=== PATIENT | male | born 1960 | race Caucasian/White ===

== ENCOUNTER 2018-05-19 22:43 | Inpatient (IN) | payer OTHER ==
[~2018-05-19] VITALS: Ht 185.4 cm; Wt 102.1 kg
[2018-05-19] MEDS ORDERED: IV NORMAL SALINE 1000ML BAG 1,000 ML IV SCH (23:15)
--- NOTE | 2018-05-19 23:15 | PHYS DOC ---
Past Medical History Past Medical History: CAD Additional Past Medical Histor: PT is deaf Past Surgical History: Other Additional Past Surgical Histo: stent Alcohol Use: None Drug Use: None Adult General Chief Complaint Chief Complaint: BLOOD IN URINE HPI HPI Patient is a 57-year-old male who presents with complaint of left-sided flank pain and hematuria that started yesterday. Patient states symptoms are similar to previous episodes of kidney stones. Patient states he has had numerous episodes with kidney stones and has had to have lithotripsy. Currently he denies any pain. He states the pain waxes and wanes. He first started noticing blood in the urine earlier today. Review of Systems Review of Systems Constitutional: Denies fever or chills [] Respiratory: Denies cough or shortness of breath [] Cardiovascular: No additional information not addressed in HPI [] GI: Denies abdominal pain, nausea, vomiting or diarrhea [] : Positive flank pain and hematuria [] All other systems were reviewed and found to be within normal limits, except as documented in this note. Current Medications Current Medications Current Medications Medications (Trade) Dose Ordered Sig/Liliana Start Time Stop Time Status Last Admin Dose Admin Sodium Chloride 1,000 ml @ 1,000 mls/hr Q1H 05/19/18 23:15 05/20/18 00:14 05/19/18 23:22 1,000 MLS/HR Allergies Allergies Allergies Coded Allergies Type Severity Reaction Last Updated Verified No Known Drug Allergies 07/14/13 No Physical Exam Physical Exam Constitutional: Well developed, well nourished, no acute distress, non-toxic appearance. [] HENT: Normocephalic, atraumatic, bilateral external ears normal, oropharynx moist, no oral exudates, nose normal. [] Eyes: PERRLA, EOMI, conjunctiva normal, no discharge. [] Neck: Normal range of motion, no tenderness, supple, no stridor. [] Cardiovascular: Regular rate and rhythm[] Lungs & Thorax: Bilateral breath sounds clear to auscultation [] Abdomen: Bowel sounds normal, soft, no tenderness. [] Skin: Warm, dry, no erythema, no rash. [] Extremities: No tenderness, no cyanosis, no clubbing, ROM intact, no edema. [] Neurologic: Awake and alert, no focal deficits noted. [] Current Patient Data Vital Signs Vital Signs Date Time Temp Pulse Resp B/P (MAP) Pulse Ox O2 Delivery O2 Flow Rate FiO2 05/19/18 22:52 98.0 79 18 162/88 (112) 97 Room Air 98.0 Lab Values Laboratory Tests Test 05/19/18 22:55 05/19/18 23:30 Urine Collection Type Void Urine Color Yellow Urine Clarity Clear Urine pH 7.0 Urine Specific [place] 1.010 Urine Protein Negative mg/dL (NEG-TRACE) Urine Glucose (UA) Negative mg/dL (NEG) Urine Ketones (Stick) Negative mg/dL (NEG) Urine Blood Large (NEG) Urine Nitrite Negative (NEG) Urine Bilirubin Negative (NEG) Urine Urobilinogen Dipstick 0.2 mg/dL (0.2 mg/dL) Urine Leukocyte Esterase Trace (NEG) Urine RBC Tntc /HPF (0-2) Urine WBC Rare /HPF (0-4) Urine Bacteria 0 /HPF (0-FEW) White Blood Count 8.9 x10^3/uL (4.0-11.0) Red Blood Count 5.41 x10^6/uL (4.30-5.70) Hemoglobin 16.4 g/dL (13.0-17.5) Hematocrit 48.2 % (39.0-53.0) Mean Corpuscular Volume 89 fL (79-100) Mean Corpuscular Hemoglobin 30 pg (25-35) Mean Corpuscular Hemoglobin Concent 34 g/dL (31-37) Red Cell Distribution Width 13.8 % (11.5-14.5) Platelet Count 223 x10^3/uL (140-400) Neutrophils (%) (Auto) 46 % (31-73) Lymphocytes (%) (Auto) 43 % (24-48) Monocytes (%) (Auto) 7 % (0-9) Eosinophils (%) (Auto) 3 % (0-3) Basophils (%) (Auto) 1 % (0-3) Neutrophils # (Auto) 4.1 x10^3uL (1.8-7.7) Lymphocytes # (Auto) 3.8 x10^3/uL (1.0-4.8) Monocytes # (Auto) 0.7 x10^3/uL (0.0-1.1) Eosinophils # (Auto) 0.3 x10^3/uL (0.0-0.7) Basophils # (Auto) 0.1 x10^3/uL (0.0-0.2) Sodium Level 141 mmol/L (136-145) Potassium Level 4.1 mmol/L (3.5-5.1) Chloride Level 103 mmol/L (98-107) Carbon Dioxide Level 29 mmol/L (21-32) Anion Gap 9 (6-14) Blood Urea Nitrogen 13 mg/dL (8-26) Creatinine 0.9 mg/dL (0.7-1.3) Estimated GFR (Cockcroft-Gault) 86.4 BUN/Creatinine Ratio 14 (6-20) Glucose Level 111 mg/dL (70-99) H Calcium Level 9.0 mg/dL (8.5-10.1) Total Bilirubin 0.5 mg/dL (0.2-1.0) Aspartate Amino Transferase (AST) 29 U/L (15-37) Alanine Aminotransferase (ALT) 48 U/L (16-63) Alkaline Phosphatase 81 U/L (46-116) Total Protein 7.8 g/dL (6.4-8.2) Albumin 4.0 g/dL (3.4-5.0) Albumin/Globulin Ratio 1.1 (1.0-1.7) Laboratory Tests 05/19/18 23:30 Laboratory Tests 05/19/18 23:30 EKG EKG [] Radiology/Procedures Radiology/Procedures [] Impressions: PROCEDURE: CT ABDOMEN PELVIS WO CONTRAST PQRS Compliance statement: One or more of the following individualized dose reduction techniques were utilized for this examination: 1. Automated exposure control. 2. Adjustment of the mA and/or kV according to patient size. 3. Use of iterative reconstruction technique. Indication:left flank pain TECHNIQUE: CT abdomen and pelvis without IV contrast with multiplanar reformats. COMPARISON: None FINDINGS: Limited evaluation of solid abdominal and pelvic organs due to lack of IV contrast. Heart is normal in size. No pericardial or pleural effusion. Clear lung bases. Noncontrast appearance of the liver, spleen, gallbladder, pancreas, adrenals within normal limits. 1.0 cm nonobstructing stone is seen in the inferior pole collecting system of the right kidney. 2 stones are seen in the proximal left ureter, the largest measuring 1.1 cm causing moderate left hydronephrosis. Additional 2-3 mm stones are seen in the left kidney. No enlarged retroperitoneal or pelvic adenopathy. No free pelvic fluid or ascites. No bowel obstruction. The prostate and seminal vesicles show no large mass. Urinary bladder demonstrates no radiopaque stones. No suspicious bony lesion. IMPRESSION: Limited evaluation of solid abdominal and pelvic organs due to lack of IV contrast. Bilateral nephrolithiasis with obstructing proximal left ureteral stone. Electronically signed by: Kiran Harrison DO (05/19/2018 11:30 PM) [facility] DICTATED and SIGNED BY: KIRAN HARRISON DO Course & Med Decision Making Course & Med Decision Making Pertinent Labs and Imaging studies reviewed. (See chart for details) [] Dragon Disclaimer Dragon Disclaimer This electronic medical record was generated, in whole or in part, using a voice recognition dictation system. Departure Departure Impression: Primary Impression: Ureterolithiasis Disposition: ADMITTED INPATIENT Admitting Physician: Shubham Garcia Condition: IMPROVED Referrals: AYAN SHELLEY (PCP) KEYSHAWN RUCKER Jr., DO May 19, 2018 23:15
[2018-05-19 23:16] LABS: BILIRUBIN,URINE NEGATIVE (NEG); CLARITY,URINE CLEAR; COLOR,URINE YELLOW; NITRITE,URINE NEGATIVE (NEG); PROTEIN,URINE NEGATIVE (NEG-TRACE); UROBILINOGEN,URINE 0.2 mg/dL (0.2 mg/dL)
[2018-05-19 23:22] LABS: BACTERIA,URINE 0 /HPF (0-FEW); RBC,URINE TNTC /HPF (0-2); WBC,URINE RARE /HPF (0-4)
--- NOTE | 2018-05-19 23:33 | RAD ---
PQRS Compliance statement: One or more of the following individualized dose reduction techniques were utilized for this examination: 1. Automated exposure control. 2. Adjustment of the mA and/or kV according to patient size. 3. Use of iterative reconstruction technique. Indication:left flank pain TECHNIQUE: CT abdomen and pelvis without IV contrast with multiplanar reformats. COMPARISON: None FINDINGS: Limited evaluation of solid abdominal and pelvic organs due to lack of IV contrast. Heart is normal in size. No pericardial or pleural effusion. Clear lung bases. Noncontrast appearance of the liver, spleen, gallbladder, pancreas, adrenals within normal limits. 1.0 cm nonobstructing stone is seen in the inferior pole collecting system of the right kidney. 2 stones are seen in the proximal left ureter, the largest measuring 1.1 cm causing moderate left hydronephrosis. Additional 2-3 mm stones are seen in the left kidney. No enlarged retroperitoneal or pelvic adenopathy. No free pelvic fluid or ascites. No bowel obstruction. The prostate and seminal vesicles show no large mass. Urinary bladder demonstrates no radiopaque stones. No suspicious bony lesion. IMPRESSION: Limited evaluation of solid abdominal and pelvic organs due to lack of IV contrast. Bilateral nephrolithiasis with obstructing proximal left ureteral stone. Electronically signed by: Kiran Harrison DO (05/19/2018 11:30 PM) [facility]
[2018-05-19 23:41] LABS: BASO # 0.1 x10^3/uL (0.0-0.2); BASO % 1 % (0-3); EOS # 0.3 x10^3/uL (0.0-0.7); EOS % 3 % (0-3); HEMATOCRIT 48.2 % (39.0-53.0); HEMOGLOBIN 16.4 g/dL (13.0-17.5); LYMPH # 3.8 x10^3/uL (1.0-4.8); LYMPH % 43 % (24-48); MEAN CORPUSCULAR HEMOGLOBIN 30 pg (25-35); MEAN CORPUSCULAR HGB CONC 34 g/dL (31-37); MEAN CORPUSCULAR VOLUME 89 fL (79-100); MONO # 0.7 x10^3/uL (0.0-1.1); MONO % 7 % (0-9); NEUT # 4.1 x10^3uL (1.8-7.7); NEUT % 46 % (31-73); PLATELET COUNT 223 x10^3/uL (140-400); RED BLOOD COUNT 5.41 x10^6/uL (4.30-5.70); RED CELL DISTRIBUTION WIDTH 13.8 % (11.5-14.5); WHITE BLOOD COUNT 8.9 x10^3/uL (4.0-11.0)
[2018-05-19 23:48] LABS: CREATININE 0.9 mg/dL (0.7-1.3); GFR 86.4; POTASSIUM 4.1 mmol/L (3.5-5.1)
[2018-05-19 23:54] LABS: ALBUMIN/GLOBULIN RATIO 1.1 (1.0-1.7); TOTAL BILIRUBIN 0.5 mg/dL (0.2-1.0); TOTAL PROTEIN 7.8 g/dL (6.4-8.2)
[2018-05-20] MEDS: IV NORMAL SALINE 1000ML BAG 1,000 ML IV SCH ×2 (00:17→09:08)
[2018-05-20] MEDS ORDERED: HYDROmorphone 2 MG/ML VIAL IV PRN (00:30)
[2018-05-20] MEDS ORDERED: ONDANSETRON PF 4 MG/2 ML VIAL. IV PRN ×2 (00:30→08:45)
[2018-05-20 00:58] VITALS: BP 149/85
--- NOTE | 2018-05-20 01:00 | NUR ---
Received report from Gudelia LYNN in the emergency department. Patient arrived to unit at 1258 via wheelchair accompanied by his and a automotive parts interpreter. Patient is hearing impaired and communicates thru sign language. Patient complains of blood and urine. Patient currently rates his pain at a 0 of 10. Patient admission complete. Patient very cooperative and pleasant throughout admission. Will need an automotive parts interpreter when Doctor's round in the AM. Patients is hearing impaired as well but can some what read lips. Patient orientated to his room, his bed was placed in the lowest position and locked, and his call light was placed within reach. A clipboard with paper was placed in patients room for communication purposes and not placed promotions officer light phone indicating the need for staff to go to patients room to determine what is needed. Will continue to monitor the patient.
[2018-05-20] MEDS ORDERED: METO25TA4 PO (01:51)
[2018-05-20] MEDS ORDERED: OMEG1CAP38 PO (01:51)
[2018-05-20] MEDS ORDERED: POTA10TA17 PO (01:51)
[2018-05-20] MEDS ORDERED: ASPI-630 PO (01:51)
[2018-05-20] MEDS ORDERED: HYDR12.575 PO (01:51)
[2018-05-20] MEDS ORDERED: PRAV40TA2 PO (01:51)
[2018-05-20] MEDS ORDERED: UBID100C26 PO (01:51)
[2018-05-20 03:26] VITALS: BP 127/80
[2018-05-20 07:00] VITALS: BP 139/79
--- NOTE | 2018-05-20 07:45 | NUR ---
finance mgr services have been requested. Motion Picture Operator scheduled to arrive around 0900 and stay for two hours.
[2018-05-20] MEDS ORDERED: HYDROcodone/APAP 5/325MG 1 TAB TABLET PO PRN (08:45)
[2018-05-20] MEDS ORDERED: POTASSIUM CITRATE 10 MEQ TABLET.ER PO SCH (09:00)
[2018-05-20] MEDS ORDERED: hydroCHLOROthiazide 12.5 MG CAPSULE PO SCH (09:00)
--- NOTE | 2018-05-20 09:27 | PDOC2 ---
UROLOGY CONSULT Date of Consult Date of Consult DATE: 05/20/18 TIME: 09:25 Source Source: Caregiver, Chart review, Patient History of Present Illness Reason for Visit: Patient is a 57-year-old male who presents with complaint of left-sided flank pain and hematuria that started day before yesterday. He states symptoms are similar to previous episodes of kidney stone, which he has had four other times. Patient states he has had numerous episodes with kidney stones and has had to have lithotripsy with Dr. Hunter right before he retired. He was taking hydralazine and Potassium Citrate for stone prevention, but stopped taking that because he ran out. He has not seen a Urologist for the past two years. Pain brought him in last night, but he is currently not having any pain at all. He had some blood in his urine, but is not having any dysuria at all. He would like to eat if possible. Past Medical History Renal/: Other (Kidney stones ) Current Problem List Problems: (1) Ureterolithiasis Current Medications Current Medications Current Medications Acetaminophen/ Hydrocodone Bitart (Lortab 5/325) 1 tab PRN Q4HRS PRN PO PAIN; Start 05/20/18 at 08:45 Atorvastatin Calcium (Lipitor) 10 mg QHS PO ; Start 05/20/18 at 21:00 Fish Oil (Fish Oil) 1,000 mg HS PO ; Start 05/20/18 at 21:00 Hydrochlorothiazide (Microzide) 12.5 mg DAILY PO ; Start 05/20/18 at 09:00 Hydromorphone HCl (Dilaudid) 1 mg PRN Q2HR PRN IV Pain; Start 05/20/18 at 00:30 Ketorolac Tromethamine (Toradol 15mg Vial) 15 mg 1X ONCE IV ; Start 05/20/18 at 09:30; Stop 05/20/18 at 09:31 Ketorolac Tromethamine (Toradol 15mg Vial) 15 mg PRN Q6HRS PRN IV PAIN; Start 05/20/18 at 09:30; Stop 05/25/18 at 09:29 Metoprolol Tartrate (Lopressor) 25 mg HS PO ; Start 05/20/18 at 21:00 Non-Formulary Medication (Ubidecarenone (Coq-10)) 100 mg HS PO ; Start 05/20/18 at 21:00; Status UNV Ondansetron HCl (Zofran) 4 mg PRN Q6HRS PRN IV NAUSEA/VOMITING; Start 05/20/18 at 08:45 Ondansetron HCl (Zofran) 4 mg PRN Q8HRS PRN IV NAUSEA/VOMITING; Start 05/20/18 at 00:30; Stop 05/20/18 at 08:39; Status DC Potassium Citrate (Urocit-K) 10 meq BID PO ; Start 05/20/18 at 09:00 Sodium Chloride 1,000 ml @ 125 mls/hr Q8H IV Last administered on 05/20/18at 09 :08; Start 05/20/18 at 00:17; Stop 05/21/18 at 00:16 Sodium Chloride 1,000 ml @ 1,000 mls/hr Q1H IV Last administered on 05/19/18at 23:22; Start 05/19/18 at 23:15; Stop 05/20/18 at 00:14; Status DC Tamsulosin HCl (Flomax) 0.4 mg QHS PO ; Start 05/20/18 at 21:00 Allergies Allergies: Coded Allergies: No Known Drug Allergies (Unverified , 07/14/13) ROS Review Of Systems: CONSTITUTIONAL: No fever or chills EYES: No recent changes SKIN: No rash or itching CARDIOVASCULAR: No chest pain, syncope, palpitations, or edema RESPIRATORY: No SOB or cough GASTROINTESTINAL: No nausea, vomiting or abdominal pain NEUROLOGICAL: No headaches or weakness ENDOCRINE: No cold or heat intolerance GENITOURINARY: + hematuria, kidney stones MUSCULOSKELETAL: No back pain or joint pain LYMPHATICS: No enlarged lymph nodes PSYCHIATRIC: No anxiety or depression Physical Exam Physical Exam: General: Pleasant, no acute distress, well groomed Eyes: conjunctiva anicteric, eyes full range of motion ENT: moist oral mucosa, normal dentition Neck: Trachea midline, no masses Respiratory: unlabored breathing, not using accessory muscles Abdomen: nontender, nondistended, no hepatosplenomegaly, no masses Skin: no rashes or skin lesions on visualized skin Psych: normal mood, affect. Alert and oriented x 3. Vitals VITALS Vital Signs Date Time Temp Pulse Resp B/P (MAP) Pulse Ox O2 Delivery O2 Flow Rate FiO2 05/20/18 07:45 Room Air 05/20/18 07:00 98.0 73 18 139/79 (99) 97 98.0 Labs Labs Laboratory Tests Test 05/19/18 22:55 05/19/18 23:30 Urine Collection Type Void Urine Color Yellow Urine Clarity Clear Urine pH 7.0 Urine Specific [place] 1.010 Urine Protein Negative mg/dL (NEG-TRACE) Urine Glucose (UA) Negative mg/dL (NEG) Urine Ketones (Stick) Negative mg/dL (NEG) Urine Blood Large (NEG) Urine Nitrite Negative (NEG) Urine Bilirubin Negative (NEG) Urine Urobilinogen Dipstick 0.2 mg/dL (0.2 mg/dL) Urine Leukocyte Esterase Trace (NEG) Urine RBC Tntc /HPF (0-2) Urine WBC Rare /HPF (0-4) Urine Bacteria 0 /HPF (0-FEW) White Blood Count 8.9 x10^3/uL (4.0-11.0) Red Blood Count 5.41 x10^6/uL (4.30-5.70) Hemoglobin 16.4 g/dL (13.0-17.5) Hematocrit 48.2 % (39.0-53.0) Mean Corpuscular Volume 89 fL (79-100) Mean Corpuscular Hemoglobin 30 pg (25-35) Mean Corpuscular Hemoglobin Concent 34 g/dL (31-37) Red Cell Distribution Width 13.8 % (11.5-14.5) Platelet Count 223 x10^3/uL (140-400) Neutrophils (%) (Auto) 46 % (31-73) Lymphocytes (%) (Auto) 43 % (24-48) Monocytes (%) (Auto) 7 % (0-9) Eosinophils (%) (Auto) 3 % (0-3) Basophils (%) (Auto) 1 % (0-3) Neutrophils # (Auto) 4.1 x10^3uL (1.8-7.7) Lymphocytes # (Auto) 3.8 x10^3/uL (1.0-4.8) Monocytes # (Auto) 0.7 x10^3/uL (0.0-1.1) Eosinophils # (Auto) 0.3 x10^3/uL (0.0-0.7) Basophils # (Auto) 0.1 x10^3/uL (0.0-0.2) Sodium Level 141 mmol/L (136-145) Potassium Level 4.1 mmol/L (3.5-5.1) Chloride Level 103 mmol/L (98-107) Carbon Dioxide Level 29 mmol/L (21-32) Anion Gap 9 (6-14) Blood Urea Nitrogen 13 mg/dL (8-26) Creatinine 0.9 mg/dL (0.7-1.3) Estimated GFR (Cockcroft-Gault) 86.4 BUN/Creatinine Ratio 14 (6-20) Glucose Level 111 mg/dL (70-99) Calcium Level 9.0 mg/dL (8.5-10.1) Total Bilirubin 0.5 mg/dL (0.2-1.0) Aspartate Amino Transf (AST/SGOT) 29 U/L (15-37) Alanine Aminotransferase (ALT/SGPT) 48 U/L (16-63) Alkaline Phosphatase 81 U/L (46-116) Total Protein 7.8 g/dL (6.4-8.2) Albumin 4.0 g/dL (3.4-5.0) Albumin/Globulin Ratio 1.1 (1.0-1.7) Laboratory Tests Test 05/19/18 22:55 05/19/18 23:30 Urine Collection Type Void Urine Color Yellow Urine Clarity Clear Urine pH 7.0 Urine Specific [place] 1.010 Urine Protein Negative mg/dL (NEG-TRACE) Urine Glucose (UA) Negative mg/dL (NEG) Urine Ketones (Stick) Negative mg/dL (NEG) Urine Blood Large (NEG) Urine Nitrite Negative (NEG) Urine Bilirubin Negative (NEG) Urine Urobilinogen Dipstick 0.2 mg/dL (0.2 mg/dL) Urine Leukocyte Esterase Trace (NEG) Urine RBC Tntc /HPF (0-2) Urine WBC Rare /HPF (0-4) Urine Bacteria 0 /HPF (0-FEW) White Blood Count 8.9 x10^3/uL (4.0-11.0) Red Blood Count 5.41 x10^6/uL (4.30-5.70) Hemoglobin 16.4 g/dL (13.0-17.5) Hematocrit 48.2 % (39.0-53.0) Mean Corpuscular Volume 89 fL (79-100) Mean Corpuscular Hemoglobin 30 pg (25-35) Mean Corpuscular Hemoglobin Concent 34 g/dL (31-37) Red Cell Distribution Width 13.8 % (11.5-14.5) Platelet Count 223 x10^3/uL (140-400) Neutrophils (%) (Auto) 46 % (31-73) Lymphocytes (%) (Auto) 43 % (24-48) Monocytes (%) (Auto) 7 % (0-9) Eosinophils (%) (Auto) 3 % (0-3) Basophils (%) (Auto) 1 % (0-3) Neutrophils # (Auto) 4.1 x10^3uL (1.8-7.7) Lymphocytes # (Auto) 3.8 x10^3/uL (1.0-4.8) Monocytes # (Auto) 0.7 x10^3/uL (0.0-1.1) Eosinophils # (Auto) 0.3 x10^3/uL (0.0-0.7) Basophils # (Auto) 0.1 x10^3/uL (0.0-0.2) Sodium Level 141 mmol/L (136-145) Potassium Level 4.1 mmol/L (3.5-5.1) Chloride Level 103 mmol/L (98-107) Carbon Dioxide Level 29 mmol/L (21-32) Anion Gap 9 (6-14) Blood Urea Nitrogen 13 mg/dL (8-26) Creatinine 0.9 mg/dL (0.7-1.3) Estimated GFR (Cockcroft-Gault) 86.4 BUN/Creatinine Ratio 14 (6-20) Glucose Level 111 mg/dL (70-99) Calcium Level 9.0 mg/dL (8.5-10.1) Total Bilirubin 0.5 mg/dL (0.2-1.0) Aspartate Amino Transf (AST/SGOT) 29 U/L (15-37) Alanine Aminotransferase (ALT/SGPT) 48 U/L (16-63) Alkaline Phosphatase 81 U/L (46-116) Total Protein 7.8 g/dL (6.4-8.2) Albumin 4.0 g/dL (3.4-5.0) Albumin/Globulin Ratio 1.1 (1.0-1.7) Images Images IMPRESSION: Limited evaluation of solid abdominal and pelvic organs due to lack of IV contrast. Bilateral nephrolithiasis with obstructing proximal left ureteral stone. Assessment/Plan Assessment/Plan Patient doing well today despite bilateral stones. Will require lithotripsy as an outpatient. He will follow up with Dr. Albarado on 05/26/18 at 120 pm. Appointment card and new patient paperwork given to patient. RX for KUB on 05/25/18 given to patient. Please get done day before appointment as a walk in at radiology patient may eat and go home on pain medication. Ok to discharge from a Urology perspective whenever medical team is ready Discussed above with RN and with patient and spouse through an knowledge manager for the hearing impaired. MAL HERRERA APRN May 20, 2018 09:27
[2018-05-20] MEDS ORDERED: KETOROLAC 15 MG/ML VIAL. IV ONE (09:30)
[2018-05-20] MEDS ORDERED: KETOROLAC 15 MG/ML VIAL. IV PRN (09:30)
--- NOTE | 2018-05-20 10:19 | PDOC1 ---
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 History obtained via signal processing engineer at bedside Known history of kidney stones - this will be his fourth episode, left and right stones, previous patient of Dr. Hunter. Twice or 3 times he needed urologic procedure and ESWL to get rid of the stones. Was maintained on unrecalled medication that "dissolve stones" and he has been for good for the past many years maybe 5 or 10 yrs until today. No significant pain, maybe a 1-1/2 hour duration only of left flank pain. But gross hematuria was marked. Hemodynamically stable with normal VS and hemoglobin and no pain. CT scan shows obstruction proximal area left and small tiny stones both left and right. I have provided copy of result. Patient has been nothing by mouth and urology consulted and aware. He Has no pertinent medical history Past Medical History Cardiovascular: No pertinent hx Pulmonary: No pertinent hx GI: No pertinent hx Heme/Onc: No pertinent hx Hepatobiliary: No pertinent hx Psych: No pertinent hx Rheumatologic: No pertinent hx Infectious disease: No pertinent hx ENT: No pertinent hx Renal/: No pertinent hx, Other (Kidney stones ) Endocrine: No pertinent hx Dermatology: No pertinent hx Past Surgical History Past Surgical History: Other (eswl) Family History Family History: No Significant Social History Smoke: No ALCOHOL: none Drugs: None Current Problem List Problem List Problems Medical Problems: (1) Ureterolithiasis Status: Acute Current Medications Current Medications Current Medications Sodium Chloride 1,000 ml @ 1,000 mls/hr Q1H IV Last administered on 05/19/18at 23:22; Start 05/19/18 at 23:15; Stop 05/20/18 at 00:14; Status DC Ondansetron HCl (Zofran) 4 mg PRN Q8HRS PRN IV NAUSEA/VOMITING; Start 05/20/18 at 00:30; Stop 05/20/18 at 08:39; Status DC Sodium Chloride 1,000 ml @ 125 mls/hr Q8H IV Last administered on 05/20/18at 09 :08; Start 05/20/18 at 00:17; Stop 05/21/18 at 00:16 Hydromorphone HCl (Dilaudid) 1 mg PRN Q2HR PRN IV Pain; Start 05/20/18 at 00:30 Hydrochlorothiazide (Microzide) 12.5 mg DAILY PO ; Start 05/20/18 at 09:00 Metoprolol Tartrate (Lopressor) 25 mg HS PO ; Start 05/20/18 at 21:00 Potassium Citrate (Urocit-K) 10 meq BID PO ; Start 05/20/18 at 09:00 Fish Oil (Fish Oil) 1,000 mg HS PO ; Start 05/20/18 at 21:00 Atorvastatin Calcium (Lipitor) 10 mg QHS PO ; Start 05/20/18 at 21:00 Non-Formulary Medication (Ubidecarenone (Coq-10)) 100 mg HS PO ; Start 05/20/18 at 21:00; Status UNV Ondansetron HCl (Zofran) 4 mg PRN Q6HRS PRN IV NAUSEA/VOMITING; Start 05/20/18 at 08:45 Acetaminophen/ Hydrocodone Bitart (Lortab 5/325) 1 tab PRN Q4HRS PRN PO PAIN; Start 05/20/18 at 08:45 Tamsulosin HCl (Flomax) 0.4 mg QHS PO ; Start 05/20/18 at 21:00 Ketorolac Tromethamine (Toradol 15mg Vial) 15 mg PRN Q6HRS PRN IV PAIN; Start 05/20/18 at 09:30; Stop 05/25/18 at 09:29 Ketorolac Tromethamine (Toradol 15mg Vial) 15 mg 1X ONCE IV Last administered on 05/20/18at 09:32; Start 05/20/18 at 09:30; Stop 05/20/18 at 09:31; Status DC Active Scripts Active Reported [place] 3 Fish Oil Softgel ([place]-3 Fatty Acids/Fish Oil) 1 Each Capsule.dr 1 Each PO HS Coq-10 (Ubidecarenone) 100 Mg Capsule 100 Mg PO HS Metoprolol Tartrate 25 Mg Tablet 1 Tab PO HS Pravastatin Sodium 40 Mg Tablet 1 Tab PO QHS Aspirin 81 Mg Tab.chew 1 Tab PO HS Hydrochlorothiazide Capsule (Hydrochlorothiazide) 12.5 Mg Capsule 12.5 Mg PO DAILY Potassium Citrate 10 Meq Tablet.er 1 Tab PO BID Allergies Allergies: Coded Allergies: No Known Drug Allergies (Unverified , 07/14/13) ROS Review of System gross hematuria otherwise rest of ROS 14 point negative Physical Exam General: Alert, Oriented X3, Cooperative, No acute distress HEENT: Atraumatic, PERRLA, EOMI Lungs: Clear to auscultation, Normal air movement Heart: S1S2, RRR, no thrills, no rubs, no gallops, no murmurs Cardiovascular: S1 Abdomen: Normal bowel sounds, Soft, No tenderness, No hepatosplenomegaly, No masses Male Genitals Exam: normal genitalia, normal prostate Rectal Exam: not examined PELVIC: Nml ext genitalia Extremities: No clubbing, No cyanosis, No edema, Normal pulses, No tenderness/ swelling Skin: No rashes, No breakdown, No significant lesion Neuro: Normal gait, Normal speech, Strength at 5/5 X4 ext, Normal tone, Sensation intact, Cranial nerves 3-12 NL, Reflexes 2+ Psych/Mental Status: Mental status NL, Mood NL Vitals Vitals Vital Signs Date Time Temp Pulse Resp B/P (MAP) Pulse Ox O2 Delivery O2 Flow Rate FiO2 05/20/18 07:45 Room Air 05/20/18 07:00 98.0 73 18 139/79 (99) 97 98.0 Labs Labs Laboratory Tests Test 05/19/18 22:55 05/19/18 23:30 Urine Collection Type Void Urine Color Yellow Urine Clarity Clear Urine pH 7.0 Urine Specific [place] 1.010 Urine Protein Negative mg/dL (NEG-TRACE) Urine Glucose (UA) Negative mg/dL (NEG) Urine Ketones (Stick) Negative mg/dL (NEG) Urine Blood Large (NEG) Urine Nitrite Negative (NEG) Urine Bilirubin Negative (NEG) Urine Urobilinogen Dipstick 0.2 mg/dL (0.2 mg/dL) Urine Leukocyte Esterase Trace (NEG) Urine RBC Tntc /HPF (0-2) Urine WBC Rare /HPF (0-4) Urine Bacteria 0 /HPF (0-FEW) White Blood Count 8.9 x10^3/uL (4.0-11.0) Red Blood Count 5.41 x10^6/uL (4.30-5.70) Hemoglobin 16.4 g/dL (13.0-17.5) Hematocrit 48.2 % (39.0-53.0) Mean Corpuscular Volume 89 fL (79-100) Mean Corpuscular Hemoglobin 30 pg (25-35) Mean Corpuscular Hemoglobin Concent 34 g/dL (31-37) Red Cell Distribution Width 13.8 % (11.5-14.5) Platelet Count 223 x10^3/uL (140-400) Neutrophils (%) (Auto) 46 % (31-73) Lymphocytes (%) (Auto) 43 % (24-48) Monocytes (%) (Auto) 7 % (0-9) Eosinophils (%) (Auto) 3 % (0-3) Basophils (%) (Auto) 1 % (0-3) Neutrophils # (Auto) 4.1 x10^3uL (1.8-7.7) Lymphocytes # (Auto) 3.8 x10^3/uL (1.0-4.8) Monocytes # (Auto) 0.7 x10^3/uL (0.0-1.1) Eosinophils # (Auto) 0.3 x10^3/uL (0.0-0.7) Basophils # (Auto) 0.1 x10^3/uL (0.0-0.2) Sodium Level 141 mmol/L (136-145) Potassium Level 4.1 mmol/L (3.5-5.1) Chloride Level 103 mmol/L (98-107) Carbon Dioxide Level 29 mmol/L (21-32) Anion Gap 9 (6-14) Blood Urea Nitrogen 13 mg/dL (8-26) Creatinine 0.9 mg/dL (0.7-1.3) Estimated GFR (Cockcroft-Gault) 86.4 BUN/Creatinine Ratio 14 (6-20) Glucose Level 111 mg/dL (70-99) Calcium Level 9.0 mg/dL (8.5-10.1) Total Bilirubin 0.5 mg/dL (0.2-1.0) Aspartate Amino Transf (AST/SGOT) 29 U/L (15-37) Alanine Aminotransferase (ALT/SGPT) 48 U/L (16-63) Alkaline Phosphatase 81 U/L (46-116) Total Protein 7.8 g/dL (6.4-8.2) Albumin 4.0 g/dL (3.4-5.0) Albumin/Globulin Ratio 1.1 (1.0-1.7) Laboratory Tests Test 05/19/18 22:55 05/19/18 23:30 Urine Collection Type Void Urine Color Yellow Urine Clarity Clear Urine pH 7.0 Urine Specific [place] 1.010 Urine Protein Negative mg/dL (NEG-TRACE) Urine Glucose (UA) Negative mg/dL (NEG) Urine Ketones (Stick) Negative mg/dL (NEG) Urine Blood Large (NEG) Urine Nitrite Negative (NEG) Urine Bilirubin Negative (NEG) Urine Urobilinogen Dipstick 0.2 mg/dL (0.2 mg/dL) Urine Leukocyte Esterase Trace (NEG) Urine RBC Tntc /HPF (0-2) Urine WBC Rare /HPF (0-4) Urine Bacteria 0 /HPF (0-FEW) White Blood Count 8.9 x10^3/uL (4.0-11.0) Red Blood Count 5.41 x10^6/uL (4.30-5.70) Hemoglobin 16.4 g/dL (13.0-17.5) Hematocrit 48.2 % (39.0-53.0) Mean Corpuscular Volume 89 fL (79-100) Mean Corpuscular Hemoglobin 30 pg (25-35) Mean Corpuscular Hemoglobin Concent 34 g/dL (31-37) Red Cell Distribution Width 13.8 % (11.5-14.5) Platelet Count 223 x10^3/uL (140-400) Neutrophils (%) (Auto) 46 % (31-73) Lymphocytes (%) (Auto) 43 % (24-48) Monocytes (%) (Auto) 7 % (0-9) Eosinophils (%) (Auto) 3 % (0-3) Basophils (%) (Auto) 1 % (0-3) Neutrophils # (Auto) 4.1 x10^3uL (1.8-7.7) Lymphocytes # (Auto) 3.8 x10^3/uL (1.0-4.8) Monocytes # (Auto) 0.7 x10^3/uL (0.0-1.1) Eosinophils # (Auto) 0.3 x10^3/uL (0.0-0.7) Basophils # (Auto) 0.1 x10^3/uL (0.0-0.2) Sodium Level 141 mmol/L (136-145) Potassium Level 4.1 mmol/L (3.5-5.1) Chloride Level 103 mmol/L (98-107) Carbon Dioxide Level 29 mmol/L (21-32) Anion Gap 9 (6-14) Blood Urea Nitrogen 13 mg/dL (8-26) Creatinine 0.9 mg/dL (0.7-1.3) Estimated GFR (Cockcroft-Gault) 86.4 BUN/Creatinine Ratio 14 (6-20) Glucose Level 111 mg/dL (70-99) Calcium Level 9.0 mg/dL (8.5-10.1) Total Bilirubin 0.5 mg/dL (0.2-1.0) Aspartate Amino Transf (AST/SGOT) 29 U/L (15-37) Alanine Aminotransferase (ALT/SGPT) 48 U/L (16-63) Alkaline Phosphatase 81 U/L (46-116) Total Protein 7.8 g/dL (6.4-8.2) Albumin 4.0 g/dL (3.4-5.0) Albumin/Globulin Ratio 1.1 (1.0-1.7) VTE Prophylaxis Ordered VTE Prophylaxis Devices: Contraindicated VTE Pharmacological Prophylaxi: Contraindicated Assessment/Plan Assessment/Plan Bilateral nephrolithiasis with obstructing proximal left ureteral stone. Deaf Gross hematuria PLAN: nothing By mouth, IV fluid, Flomax, pain medicine when necessary-minimal pain Consulted urology Discussed with and urology via sign communications field technician NO evidence uTI PAULA TIJERINA MD May 20, 2018 10:19
[2018-05-20] MEDS ORDERED: HYDR-2761 PO (10:33)
[2018-05-20] MEDS ORDERED: TAMS0.4C97 PO (10:33)
--- NOTE | 2018-05-20 10:35 | PDOC3 ---
Discharge Summary Visit Information Date of Admission: May 19, 2018 Date of Discharge: May 20, 2018 Admitting Diagnosis Comment: Limited evaluation of solid abdominal and pelvic organs due to lack of IV contrast. Bilateral nephrolithiasis with obstructing proximal left ureteral stone. Final Diagnosis Problems Medical Problems: (1) Ureterolithiasis Status: Acute Brief Hospital Course Allergies Allergies Coded Allergies Type Severity Reaction Last Updated Verified No Known Drug Allergies 07/14/13 No Vital Signs Vital Signs Date Time Temp Pulse Resp B/P (MAP) Pulse Ox O2 Delivery O2 Flow Rate FiO2 05/20/18 07:45 Room Air 05/20/18 07:00 98.0 73 18 139/79 (99) 97 98.0 Lab Results Laboratory Tests Test 05/19/18 22:55 05/19/18 23:30 Urine Collection Type Void Urine Color Yellow Urine Clarity Clear Urine pH 7.0 Urine Specific [place] 1.010 Urine Protein Negative mg/dL (NEG-TRACE) Urine Glucose (UA) Negative mg/dL (NEG) Urine Ketones (Stick) Negative mg/dL (NEG) Urine Blood Large (NEG) Urine Nitrite Negative (NEG) Urine Bilirubin Negative (NEG) Urine Urobilinogen Dipstick 0.2 mg/dL (0.2 mg/dL) Urine Leukocyte Esterase Trace (NEG) Urine RBC Tntc /HPF (0-2) Urine WBC Rare /HPF (0-4) Urine Bacteria 0 /HPF (0-FEW) White Blood Count 8.9 x10^3/uL (4.0-11.0) Red Blood Count 5.41 x10^6/uL (4.30-5.70) Hemoglobin 16.4 g/dL (13.0-17.5) Hematocrit 48.2 % (39.0-53.0) Mean Corpuscular Volume 89 fL (79-100) Mean Corpuscular Hemoglobin 30 pg (25-35) Mean Corpuscular Hemoglobin Concent 34 g/dL (31-37) Red Cell Distribution Width 13.8 % (11.5-14.5) Platelet Count 223 x10^3/uL (140-400) Neutrophils (%) (Auto) 46 % (31-73) Lymphocytes (%) (Auto) 43 % (24-48) Monocytes (%) (Auto) 7 % (0-9) Eosinophils (%) (Auto) 3 % (0-3) Basophils (%) (Auto) 1 % (0-3) Neutrophils # (Auto) 4.1 x10^3uL (1.8-7.7) Lymphocytes # (Auto) 3.8 x10^3/uL (1.0-4.8) Monocytes # (Auto) 0.7 x10^3/uL (0.0-1.1) Eosinophils # (Auto) 0.3 x10^3/uL (0.0-0.7) Basophils # (Auto) 0.1 x10^3/uL (0.0-0.2) Sodium Level 141 mmol/L (136-145) Potassium Level 4.1 mmol/L (3.5-5.1) Chloride Level 103 mmol/L (98-107) Carbon Dioxide Level 29 mmol/L (21-32) Anion Gap 9 (6-14) Blood Urea Nitrogen 13 mg/dL (8-26) Creatinine 0.9 mg/dL (0.7-1.3) Estimated GFR (Cockcroft-Gault) 86.4 BUN/Creatinine Ratio 14 (6-20) Glucose Level 111 mg/dL (70-99) Calcium Level 9.0 mg/dL (8.5-10.1) Total Bilirubin 0.5 mg/dL (0.2-1.0) Aspartate Amino Transf (AST/SGOT) 29 U/L (15-37) Alanine Aminotransferase (ALT/SGPT) 48 U/L (16-63) Alkaline Phosphatase 81 U/L (46-116) Total Protein 7.8 g/dL (6.4-8.2) Albumin 4.0 g/dL (3.4-5.0) Albumin/Globulin Ratio 1.1 (1.0-1.7) Laboratory Tests Test 05/19/18 22:55 05/19/18 23:30 Urine Collection Type Void Urine Color Yellow Urine Clarity Clear Urine pH 7.0 Urine Specific [place] 1.010 Urine Protein Negative mg/dL (NEG-TRACE) Urine Glucose (UA) Negative mg/dL (NEG) Urine Ketones (Stick) Negative mg/dL (NEG) Urine Blood Large (NEG) Urine Nitrite Negative (NEG) Urine Bilirubin Negative (NEG) Urine Urobilinogen Dipstick 0.2 mg/dL (0.2 mg/dL) Urine Leukocyte Esterase Trace (NEG) Urine RBC Tntc /HPF (0-2) Urine WBC Rare /HPF (0-4) Urine Bacteria 0 /HPF (0-FEW) White Blood Count 8.9 x10^3/uL (4.0-11.0) Red Blood Count 5.41 x10^6/uL (4.30-5.70) Hemoglobin 16.4 g/dL (13.0-17.5) Hematocrit 48.2 % (39.0-53.0) Mean Corpuscular Volume 89 fL (79-100) Mean Corpuscular Hemoglobin 30 pg (25-35) Mean Corpuscular Hemoglobin Concent 34 g/dL (31-37) Red Cell Distribution Width 13.8 % (11.5-14.5) Platelet Count 223 x10^3/uL (140-400) Neutrophils (%) (Auto) 46 % (31-73) Lymphocytes (%) (Auto) 43 % (24-48) Monocytes (%) (Auto) 7 % (0-9) Eosinophils (%) (Auto) 3 % (0-3) Basophils (%) (Auto) 1 % (0-3) Neutrophils # (Auto) 4.1 x10^3uL (1.8-7.7) Lymphocytes # (Auto) 3.8 x10^3/uL (1.0-4.8) Monocytes # (Auto) 0.7 x10^3/uL (0.0-1.1) Eosinophils # (Auto) 0.3 x10^3/uL (0.0-0.7) Basophils # (Auto) 0.1 x10^3/uL (0.0-0.2) Sodium Level 141 mmol/L (136-145) Potassium Level 4.1 mmol/L (3.5-5.1) Chloride Level 103 mmol/L (98-107) Carbon Dioxide Level 29 mmol/L (21-32) Anion Gap 9 (6-14) Blood Urea Nitrogen 13 mg/dL (8-26) Creatinine 0.9 mg/dL (0.7-1.3) Estimated GFR (Cockcroft-Gault) 86.4 BUN/Creatinine Ratio 14 (6-20) Glucose Level 111 mg/dL (70-99) Calcium Level 9.0 mg/dL (8.5-10.1) Total Bilirubin 0.5 mg/dL (0.2-1.0) Aspartate Amino Transf (AST/SGOT) 29 U/L (15-37) Alanine Aminotransferase (ALT/SGPT) 48 U/L (16-63) Alkaline Phosphatase 81 U/L (46-116) Total Protein 7.8 g/dL (6.4-8.2) Albumin 4.0 g/dL (3.4-5.0) Albumin/Globulin Ratio 1.1 (1.0-1.7) Brief Hospital Course Mr. 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 History obtained via ux design lead at bedside Known history of kidney stones - this will be his fourth episode, left and right stones, previous patient of Dr. Hunter. Twice or 3 times he needed urologic procedure and ESWL to get rid of the stones. Was maintained on unrecalled medication that "dissolve stones" and he has been for good for the past many years maybe 5 or 10 yrs until today. No significant pain, maybe a 1-1/2 hour duration only of left flank pain. But gross hematuria was marked. Hemodynamically stable with normal VS and hemoglobin and no pain. CT scan shows obstruction proximal area left and small tiny stones both left and right. I have provided copy of result. Patient has been nothing by mouth and urology consulted and aware. He Has no pertinent medical history course: Seen by urology, cleared for discharge since no pain. No evidence of UTI. I did start some Flomax, he is not in pain. But still Rx on chart if he wishes to hang onto it just in case he gets pain some time Discharge disposition to home with Discharge instructions follow-up with urology as instructed Discharge Information Condition at Discharge: Improved, Stable Disposition/Orders: D/C to Home Scheduled Aspirin (Aspirin) 81 Mg Tab.chew, 1 TAB PO HS for coag, #30 Ref 3 (Reported) Entered as Reported by: ELVI LOVE on 05/20/18 0151 Last Taken: Unknown Dose on 05/19/18 Last Action: HELD on 05/20/18 0838 by PAULA TIJERINA Hydrochlorothiazide (Hydrochlorothiazide Capsule ) 12.5 Mg Capsule, 12.5 MG PO DAILY for DIURETIC, Ref 0 (Reported) Entered as Reported by: ELVI LOVE on 05/20/18150 Last Taken: Unknown Dose on 05/19/18 Last Action: Continued on 05/20/18837 by PAULA TIJERINA Metoprolol Tartrate (Metoprolol Tartrate) 25 Mg Tablet, 1 TAB PO HS for HTN, # 180 Ref 1 (Reported) Entered as Reported by: ELVI LOVE on 05/20/18150 Last Taken: Unknown Dose on 05/19/18 Last Action: Continued on 05/20/18837 by PAULA TIJERINA [place]-3 Fatty Acids/Fish Oil ([place] 3 Fish Oil Softgel) 1 Each Capsule.dr, 1 EACH PO HS for supplements, (Reported) Entered as Reported by: ELVI LOVE on 05/20/18150 Last Action: Converted on 05/20/18837 by PAULA TIJERINA Potassium Citrate (Potassium Citrate) 10 Meq Tablet.er, 1 TAB PO BID for K replacement, #60 Ref 11 (Reported) Entered as Reported by: ELVI LOVE on 05/20/18150 Last Taken: Unknown Dose on 05/19/18 Last Action: Continued on 05/20/18837 by PAULA TIJERINA Pravastatin Sodium (Pravastatin Sodium) 40 Mg Tablet, 1 TAB PO QHS for anti cholesterol, #90 Ref 1 (Reported) Entered as Reported by: ELVI LOVE on 05/20/18150 Last Taken: Unknown Dose on 05/19/18 Last Action: Converted on 05/20/18837 by PAULA TIJERINA Tamsulosin Hcl (Flomax) 0.4 Mg Cap.er.24h, 0.4 MG PO QHS for kidney stone MDD 1 , #14 Prescribed by: PAULA TIJERINA on 05/20/18 1033 Ubidecarenone (Coq-10) 100 Mg Capsule, 100 MG PO HS for supplement htn, ( Reported) Entered as Reported by: ELVI LOVE on 05/20/18150 Last Taken: Unknown Dose on 05/19/18 Last Action: Converted on 05/20/18837 by PAULA TERMULO Scheduled PRN Hydrocodone Bit/Acetaminophen (Hydrocodone-[place] 5-325 ) 1 Tab Tablet, 1 TAB PO PRN Q4HRS PRN for PAIN MDD 1, #10 Prescribed by: PAULA TIJERINA on 05/20/18 1033 PAULA TIJERINA MD May 20, 2018 10:35
--- NOTE | 2018-05-20 10:46 | NUR ---
SW following, discussed with RN. Pt is from home with , pt is deaf - asl interpreter has been requested by RN. Pt is having a procedure tonight. SW will continue to follow.
--- NOTE | 2018-05-20 11:45 | NUR ---
Pt discharged home with no additional services. Ambulated to hospital entrance accompanied by spouse. Urologkrystal olmos with discharge provided Pt with f/u appt information for outpatient lithotripsy. interpreter translator who had been here since 0950 assisted this nurse in providing discharge information and education regarding diagnosis, new medications and follow up appointment. Pt denies pain or discomfort upon discharge. No changes from previous assessment.
[2018-05-20] MEDS ORDERED: METOPROLOL TART IMMED RELEASE 25 MG TABLET. PO SCH (21:00)
[2018-05-20] MEDS ORDERED: NON FORMULARY ITEM (Ubidecarenone (Coq-10) 100 MG) PO SCH (21:00)
[2018-05-20] MEDS ORDERED: TAMSULOSIN 0.4 MG CAP.ER.24H. PO SCH (21:00)
[2018-05-20] MEDS ORDERED: OMEGA-3 FATTY ACIDS/FISH OIL 1,000 MG CAPSULE. PO SCH (21:00)
[2018-05-20] MEDS ORDERED: ATORVASTATIN CALCIUM 10 MG TABLET. PO SCH (21:00)
[2018-05-29] MEDS ORDERED: ASPI-630 PO (15:57)
== END 2018-05-20 11:45 | disposition home or self-care (01) | DRG 694 ==
LOC: ER 22:43 → 4 NORTH 05-20 00:16
PROVIDERS: ADMIT Family Medicine; ATTEND Family Medicine
DX: N20.2 Calculus of kidney with calculus of ureter (principal); R31.0 Gross hematuria; H91.90 Unspecified hearing loss, unspecified ear; I10 Essential (primary) hypertension; I25.10 Atherosclerotic heart disease of native coronary artery without angina pectoris; Z87.442 Personal history of urinary calculi; Z79.899 Other long term (current) drug therapy
CPT/HCPCS: 36415; 74176; 80053; 81001; 85025; 87086; 96360; J1885; J7030; 99285-25

== ENCOUNTER → 2018-05-25 | Outpatient (CLI) | payer OTHER ==
[2018-05-20 07:00] VITALS: BP 139/79
[~2018-05-25] MED LIST: ASPI-630 PO; HYDR-2761 PO; HYDR12.575 PO; METO25TA4 PO; OMEG1CAP38 PO; POTA10TA17 PO; PRAV40TA2 PO; TAMS0.4C97 PO; UBID100C26 PO
--- NOTE | 2018-05-25 12:50 | RAD ---
EXAM: Abdomen, single view. HISTORY: Nephrolithiasis. Pain. COMPARISON: CT dated 05/19/2018. FINDINGS: Frontal views of the abdomen and pelvis are obtained. There are multiple calcifications overlying the renal shadows due to recently demonstrated nephrolithiasis. The largest stone on the right is seen within the lower pole measuring 14 mm and the largest stone on the left is seen overlying the lower pole measuring 10 mm. There is a suspected 14 mm cluster of stones within the mid left ureter. These may be more distally located compared to the recent CT. There are few pelvic phleboliths. There are surgical clips within the right lower quadrant. There is a nonobstructive bowel gas pattern. IMPRESSION: 1. Bilateral nephrolithiasis, described above. 2. Left ureterolithiasis. There appears to have been slight interval transit of a cluster of stones within the mid left ureter compared to the recent CT. 2. Nonobstructive bowel gas pattern. Electronically signed by: Janice Morris MD (05/25/2018 12:47 PM) [id number]
== END | disposition home or self-care (01) ==
LOC: RAD 11:54
PROVIDERS: ATTEND Urology
DX: N20.0 Calculus of kidney (principal); N20.1 Calculus of ureter
CPT/HCPCS: 74018

== ENCOUNTER 2018-06-01 10:25 | Day surgery (SDC) | payer OTHER ==
[~2018-06-01] VITALS: Ht 185.4 cm; Wt 102.1 kg
[~2018-06-01 10:25] MED LIST changes: +DEXAMETHASONE SOD PHOS 20 MG/5 ML VIAL. ONE; +FAMOTIDINE 20 MG/2 ML VIAL ONE; +HYDROmorphone 2 MG/ML VIAL IV PRN; +IOHEXOL 300 MG/ML 100ML VIAL. ONE; +IV RINGERS,LACTATED 1000ML 1,000 ML IV SCH; +LIDOCAINE 1% PF 2 ML VIAL. ID PRN; +LIDOCAINE 2% JELLY 6ML IN APPLICATOR. ONE; +LIDOCAINE 2% PF 5 ML VIAL. ONE; +MORPHINE SULFATE 2 MG/ML VIAL. IV PRN; +ONDANSETRON PF 4 MG/2 ML VIAL. IV PRN; +ONDANSETRON PF 4 MG/2 ML VIAL. ONE; +PROCHLORPERAZINE 10 MG/2 ML VIAL. IV PRN; +PROPOFOL 20 ML IV ONE; +fentaNYL PF VIAL 100 MCG/2 ML VIAL IV PRN
[2018-06-01] MEDS ORDERED: KETOROLAC 30 MG/ML INJ FOR OR. INJ ONE (12:34)
[2018-06-01] MEDS ORDERED: SEVOFLURANE 31 TO 60 MINUTES. IH ONE (12:34)
--- NOTE | 2018-06-01 12:47 | PDOC4 ---
OPERATIVE NOTE Date: Date: Jun 01, 2018 Pre-Op Diagnosis: L ureteral stone(s) Post-Op Diagnosis: same Procedure Performed: cysto, eva RPg's, placement L ureteral stent Surgeon: Verena Anesthesia Type: gen Blood Loss: min Specimans Obtained: none Findings: nl bladder; obstruction of prox L ureter, no obstr on R ureter Complications: neg Operative Note: Gen Anes pre-op Abx pt placed in lithotomy pos'n, prepped and draped in usual fashion cysto performed with 21 Fr scope usng 30-degree lens urethra revealed compromised prostate, no stx, nl bladder and UO's RPG on L side perfomed revealing obstr at L-4 level RPG on R side wnl with good drainage Gudewire placed thru L UO; it met resistance at L4 but was eventuallymanipulated beyond this level to the upper kanika system. A 6 x 26 POlaris stent on string was the placed over the wire. There was considerable resistance at L4 but the stent was eventually manipulated into the renal collecting system. The wire was removed allowing the stent to coil in good position. The bladder was emptied and scope removed. The string was taped to penis in usual fashion The pt was the transferred to RR in good cond'n. Disp: home after RR, Rx Lortab. He will be sheduled for OP ESWL of L ureteral stone. No compl RICHARD GROSS MD Jun 01, 2018 12:47
[2018-06-01] MEDS ORDERED: fentaNYL PF VIAL 100 MCG/2 ML VIAL ONE ×2 (13:10→13:39)
[2018-06-01] MEDS: fentaNYL PF VIAL 100 MCG/2 ML VIAL IV PRN ×3 (13:14→13:40)
[2018-06-01] MEDS ORDERED: HYDROcodone/APAP 5/325MG 1 TAB TABLET PO ONE ×2 (13:45)
[2018-06-01 14:35] VITALS: BP 140/76
== END 2018-06-01 14:35 | disposition home or self-care (01) ==
LOC: SURG 10:25
PROVIDERS: ATTEND Urology
DX: N20.1 Calculus of ureter (principal); I10 Essential (primary) hypertension; I25.10 Atherosclerotic heart disease of native coronary artery without angina pectoris; E78.00 Pure hypercholesterolemia, unspecified; N40.0 Benign prostatic hyperplasia without lower urinary tract symptoms; Z79.82 Long term (current) use of aspirin; Z79.899 Other long term (current) drug therapy; Z90.49 Acquired absence of other specified parts of digestive tract; Z98.890 Other specified postprocedural states; Z82.49 Family history of ischemic heart disease and other diseases of the circulatory system; Z80.41 Family history of malignant neoplasm of ovary; Z72.89 Other problems related to lifestyle
CPT/HCPCS: 52332; 76000; C2617; J0696; J1100; J1885; J2001; J2405; J2704; J3010; J3490; Q9967; C1769

== ENCOUNTER → 2018-06-16 | Outpatient (CLI) | payer OTHER ==
[2018-06-01 14:35] VITALS: BP 140/76
[~2018-06-16] MED LIST changes: -DEXAMETHASONE SOD PHOS 20 MG/5 ML VIAL. ONE; -FAMOTIDINE 20 MG/2 ML VIAL ONE; -HYDROmorphone 2 MG/ML VIAL IV PRN; -IOHEXOL 300 MG/ML 100ML VIAL. ONE; -IV RINGERS,LACTATED 1000ML 1,000 ML IV SCH; -LIDOCAINE 1% PF 2 ML VIAL. ID PRN; -LIDOCAINE 2% JELLY 6ML IN APPLICATOR. ONE; -LIDOCAINE 2% PF 5 ML VIAL. ONE; -MORPHINE SULFATE 2 MG/ML VIAL. IV PRN; -ONDANSETRON PF 4 MG/2 ML VIAL. IV PRN; -ONDANSETRON PF 4 MG/2 ML VIAL. ONE; -PROCHLORPERAZINE 10 MG/2 ML VIAL. IV PRN; -PROPOFOL 20 ML IV ONE; -fentaNYL PF VIAL 100 MCG/2 ML VIAL IV PRN
--- NOTE | 2018-06-16 11:45 | RAD ---
GRABIEL, 06/16/2018: HISTORY: Follow-up stent Comparison is made to a study from 05/25/2018. A left ureteral stent has been placed with its upper pigtail projected over the region of the left renal pelvis and its lower pigtail projected over the urinary bladder near the midline. The renal regions are partially obscured by overlying bowel. Known intrarenal calculi are again noted bilaterally.. On the previous study there was a cluster of calcifications projected over the left transverse process at L5 compatible with ureteral calculi. 2 of these radiopacities persist at the same level. The largest of these measures 5 mm. No other radiopacities suspicious for ureteral calculi are seen. IMPRESSION: 1. The left ureteral stent is in satisfactory position. 2. Persistent small ureteral calculi adjacent to the left stent at the L5 level. 3. Bilateral intrarenal calculi. Electronically signed by: Asa Rose MD (06/16/2018 11:42 AM) [facility]
== END | disposition home or self-care (01) ==
LOC: RAD 11:00
PROVIDERS: ATTEND Physician Assistant Medical
DX: N20.2 Calculus of kidney with calculus of ureter (principal); Z96.0 Presence of urogenital implants
CPT/HCPCS: 74018

== ENCOUNTER → 2018-06-29 | Outpatient (CLI) | payer OTHER ==
[2018-06-01 14:35] VITALS: BP 140/76
--- NOTE | 2018-06-29 16:05 | RAD ---
AP view of the abdomen Clinical indications: Left-sided kidney stones. COMPARISON: June 16, 2018. FINDINGS: Previously seen left ureteral stent has been removed. Again seen are radiopaque stones of the lower pole of the left kidney. The largest stone measures 9 mm. Small punctate radiopaque stone of the upper pole of left left kidney is again noted. Again seen is a radiopaque stone of the lower pole of the right kidney which measures 13 mm. Again seen are vascular calcifications within the anatomic pelvis. No obstructive bowel pattern is evident. There is mild fecal retention throughout the colon. IMPRESSION: Bilateral renal stones. Electronically signed by: Yung Mason MD (06/29/2018 4:02 PM) [facility]
== END | disposition home or self-care (01) ==
LOC: RAD 12:22
PROVIDERS: ATTEND Urology
DX: N20.0 Calculus of kidney (principal); K59.09 Other constipation; N20.1 Calculus of ureter
CPT/HCPCS: 74018

== ENCOUNTER → 2018-12-21 | Outpatient (CLI) | payer OTHER ==
--- NOTE | 2018-12-21 15:56 | RAD ---
EXAM: Abdomen, single view. HISTORY: Ureteral stone. COMPARISON: 06/29/2018 FINDINGS: Frontal views of the abdomen and pelvis are obtained. There are multiple calcifications overlying the renal shadows, the largest of which overlies the right lower pole measuring approximately 14 mm. These are not appreciably changed compared to the prior study. There has been removal of a left nephroureteral stent. The previously demonstrated left ureteral stone is not seen radiographic with. There is a left pelvic phlebolith. There are surgical clips overlying the right lower quadrant. There is a nonobstructive bowel gas pattern. IMPRESSION: 1. Bilateral nephrolithiasis, not appreciably changed compared to the prior study. 2. Nonvisualization of a previously demonstrated left ureteral stone on the CT dated 05/19/2018. Electronically signed by: Janice Morris MD (12/21/2018 3:53 PM) [id number]
== END | disposition home or self-care (01) ==
LOC: RAD 11:36
PROVIDERS: ATTEND Urology
DX: N20.1 Calculus of ureter (principal)
CPT/HCPCS: 74018

== ENCOUNTER 2019-07-22 04:51 | Emergency (ER) | payer OTHER ==
[~2019-07-22] VITALS: Ht 185.4 cm; Wt 102.3 kg
--- NOTE | 2019-07-22 05:09 | PHYS DOC ---
Past Medical History Past Medical History: CAD, High Cholesterol, Hypertension Additional Past Medical Histor: PT is deaf (JAGUARJONY Carlitos DESHPANDE) Past Surgical History: Appendectomy, Other Additional Past Surgical Histo: stent, Lithotripsy (JONY DONALD DO) Smoking Status: Never Smoker Alcohol Use: Occasionally Drug Use: None (JONY DONALD DO) General Adult EDM: Chief Complaint: FLANK PAIN HPI: HPI: 58-year-old male past medical history kidney stones presents with a chief com plaint of left flank pain. Onset of symptoms around midnight pain is located left flank radiation to the groin. Denies any associated nausea or vomiting. (JONY DONALD DO) Review of Systems: Review of Systems: Constitutional: Denies fever or chills. [] Eyes: Denies change in visual acuity. [] HENT: Denies nasal congestion or sore throat. [] Respiratory: Denies cough or shortness of breath. [] Cardiovascular: Denies chest pain or edema. [] GI: Denies abdominal pain, nausea, vomiting, bloody stools or diarrhea. [] : Denies dysuria. [Positive flank pain] Musculoskeletal: Denies back pain or joint pain. [] Integument: Denies rash. [] Neurologic: Denies headache, focal weakness or sensory changes. [] Endocrine: Denies polyuria or polydipsia. [] Lymphatic: Denies swollen glands. [] Psychiatric: Denies depression or anxiety. [] (JONY DONALD DO) Heart Score: Risk Factors: Risk Factors: DM, Current or recent (<one month) smoker, HTN, HLP, family history of CAD, obesity. Risk Scores: Score 0 - 3: 2.5% MACE over next 6 weeks - Discharge Home Score 4 - 6: 20.3% MACE over next 6 weeks - Admit for Clinical Observation Score 7 - 10: 72.7% MACE over next 6 weeks - Early Invasive Strategies (JONY DONALD DO) Allergies: Allergies: Allergies Coded Allergies Type Severity Reaction Last Updated Verified No Known Drug Allergies 06/01/18 No (JONY DONALD DO) Physical Exam: PE: Constitutional: Well developed, well nourished, no acute distress, non-toxic appearance. [] HENT: Normocephalic, atraumatic, bilateral external ears normal, oropharynx moist, no oral exudates, nose normal. [] Eyes: PERRLA, EOMI, conjunctiva normal, no discharge. [] Neck: Normal range of motion, no tenderness, supple, no stridor. [] Cardiovascular:Heart rate regular rhythm, no murmur [] Lungs & Thorax: Bilateral breath sounds clear to auscultation [] Abdomen: Bowel sounds normal, soft, no tenderness, no masses, no pulsatile masses. [] Skin: Warm, dry, no erythema, no rash. [] Back: No tenderness, no CVA tenderness. [] Extremities: No tenderness, no cyanosis, no clubbing, ROM intact, no edema. [] Neurologic: Alert and oriented X 3, normal motor function, normal sensory function, no focal deficits noted. [] Psychologic: Affect normal, judgement normal, mood normal. [] (JAGUARJONY Urbina DO) PE: Constitutional: Well developed, well nourished, no acute distress, non-toxic appearance Cardiovascular: Heart rate normal, regular rhythm Lungs & Thorax: Bilateral breath sounds clear to auscultation, no wheezing Abdomen: Soft, no tenderness Skin: Warm, dry, no erythema, no rash Back: No tenderness, left CVA tenderness Extremities: No tenderness, ROM intact, no edema Neurologic: Alert and oriented X 3, no focal deficits noted Psychologic: Affect normal, judgment normal (ANTHONY MCKAY DO) EKG: EKG: [] (JAGUARJONY Urbina DO) Radiology/Procedures: Radiology/Procedures: [] (JAGUARJONY Urbina DO) Radiology/Procedures: PROCEDURE: CT ABDOMEN PELVIS WO CONTRAST Study: CT abdomen/pelvis without intravenous contrast Indication: Left flank pain. Comparison: 05/19/2018 Technique: Helical CT imaging performed of the abdomen and pelvis without the use of intravenous contrast. Sagittal and coronal reformats were obtained. One or more of the following individualized dose reduction techniques were utilized for this examination: 1. Automated exposure control 2. Adjustment of the mA and/or kV according to patient size 3. Use of iterative reconstruction technique. Findings: Inherently limited evaluation without intravenous contrast. Chest: Partially imaged right lower lobe nodule with the visualized portion measuring up to 6 mm. A few millimetric satellite nodules seen on image 3 series 2. A small nodule within the lingula is unchanged from the comparison. Liver: Subcentimeter focus of hypoattenuation on image 40 series 2 was present previously. Gallbladder/Biliary Tree: Within normal limits. Pancreas: Unremarkable. Spleen: Within normal limits for size. Adrenal Glands: Unremarkable. Kidneys/Ureters/Bladder: Multiple intrarenal stones bilaterally. There is again hydroureteronephrosis on the left but slightly worsened from the comparison. This is seen in the setting of two stones within the proximal ureter the more proximal of which measures 5.6 mm and the distal stone 4.4 mm. Two stones were present at this location on the comparison but measured larger in size. The more distal left ureter is collapsed. No progression of collecting system dilatation on the right with either unchanged caliectasis or peripelvic cysts. Peripelvic cysts likely present on the left as well. Redemonstrated left more so than right renal cortical thinning. Unchanged urinary bladder wall thickening. Reproductive Organs: Unchanged. Colon: Diverticulosis without diverticulitis. Mild constipation. Appendix: Surgically absent. Small Bowel: Nonobstructed. Stomach: Not well evaluated due to underdistention. Vasculature: Nonaneurysmal aorta. Lymph Nodes: Scattered mildly prominent upper abdominal lymph nodes are not significantly different in size. Scattered mesenteric lymph nodes are not pathologically enlarged. Peritoneum and Body Wall: Mild haziness of the central mesentery that is unchanged. No free fluid or air. No newly seen body wall abnormality. Bones: Scattered degenerative/chronic changes. No significant progression. Miscellaneous: None. Impression: 1. Moderate hydronephrosis/proximal hydroureter on the left with hydronephrosis present in 2019 as well but slightly worsened on this exam. There are again two stones within the proximal left ureter measuring 5.6 and 4.4 mm noting that the stones at this location previously measured slightly larger. Distal to the stones the ureter becomes collapsed. Given inability to pass the stones a ureteral stricture may be present. 2. Several additional nonobstructing intrarenal stones on both the right and left. Unchanged configuration of the right-sided collecting system. Bilateral peripelvic cysts and left more so than right renal parenchymal scarring. 3. Right lower lobe pulmonary nodule measuring approximately 6 mm with a few very small satellite nodules. The comparison studies did not include this portion of the lung in the [id number]-ht-dhoq and the stability of these nodules is uncertain. Unless outside imaging studies become available that can confirm stability, follow-up CT in 6-12 months is recommended per Fleischner guidelines. 4. Additional unchanged findings as detailed above. Electronically signed by: DIXIE WALTERS MD (07/22/2019 6:06 AM) [id number] (ANTHONY MCKAY DO) Course & Med Decision Making: Course & Med Decision Making Pertinent Labs and Imaging studies reviewed. (See chart for details) [] (JONY DONALD DO) Course & Med Decision Making 0600- Sign out received from Dr. Donald for patient with left sided flank pain. Hx of known kidney stones. Pain previously addressed. Labs reviewed. UA with microscopic hematuria. Cannot fully exclude infection however appears more contamination. UCX pending. BUN/Creat stable. CT abd/pelvis pending. Patient seen and evaluated by myself. CT with findings of proximal ureteral stones and possible ureteral stricture. Radiologist notes stones seen previously and previously appeared larger. Patient reports he follows with urology. Patient reports interval improvement and feels well enough to follow up as outpatient the his urologist. Patient also educated on incidental pulmonary nodule. Patient to follow up with his PCP in 6-12 months for repeat imaging. A copy of CT results provided to patient. Patient stable for discharge with outpatient follow-up with PCP/urologist. Discussed findings and plan with patient and family, who acknowledge understanding and agreement. (ANTHONY MCKAY DO) Dragon Disclaimer: Dragon Disclaimer: This electronic medical record was generated, in whole or in part, using a voice recognition dictation system. (JONY DONALD DO) Departure Departure Impression: Primary Impression: Kidney stone Additional Impression: Incidental pulmonary nodule Disposition: HOME, SELF-CARE Condition: STABLE Referrals: AYAN SHELLEY (PCP) Patient Instructions: Diet for Kidney Stones, Incidental Abnormal Radiological Finding, Kidney Stones, Qtyg-qq-Bmym, Pulmonary Nodule, Skmg-wo-Mdkk Scripts Tamsulosin Hcl (FLOMAX) 0.4 Mg Cap.er.24h 1 CAP PO DAILY, #7 CAP Prov: ANTHONY MCKAY DO 07/22/19 Hydrocodone/Apap 5-325 (NORCO 5-325 TABLET) 1 Each Tablet 0.5-1 TAB PO PRN Q6HRS PRN for PAIN, #10 TAB 0 Refills Prov: ANTHONY MCKAY DO 07/22/19 JONY DONALD DO Jul 22, 2019 05:09 ANTHONY MCKAY DO Jul 22, 2019 06:49
[2019-07-22 05:30] LABS: BASO # 0.1 x10^3/uL (0.0-0.2); BASO % 1 % (0-3); EOS # 0.3 x10^3/uL (0.0-0.7); EOS % 3 % (0-3); HEMATOCRIT 44.4 % (39.0-53.0); HEMOGLOBIN 15.2 g/dL (13.0-17.5); LYMPH # 2.9 x10^3/uL (1.0-4.8); LYMPH % 36 % (24-48); MEAN CORPUSCULAR HEMOGLOBIN 31 pg (25-35); MEAN CORPUSCULAR HGB CONC 34 g/dL (31-37); MEAN CORPUSCULAR VOLUME 90 fL (79-100); MONO # 0.7 x10^3/uL (0.0-1.1); MONO % 9 % (0-9); NEUT # 4.2 x10^3/uL (1.8-7.7); NEUT % 52 % (31-73); PLATELET COUNT 230 x10^3/uL (140-400); RED BLOOD COUNT 4.94 x10^6/uL (4.30-5.70); RED CELL DISTRIBUTION WIDTH 13.6 % (11.5-14.5); WHITE BLOOD COUNT 8.2 x10^3/uL (4.0-11.0)
[2019-07-22] MEDS ORDERED: KETOROLAC 30 MG/ML VIAL. IVP ONE (05:30)
[2019-07-22 05:41] LABS: BILIRUBIN,URINE NEGATIVE (NEG); CLARITY,URINE CLEAR; COLOR,URINE YELLOW; NITRITE,URINE NEGATIVE (NEG); PROTEIN,URINE NEGATIVE (NEG-TRACE); UROBILINOGEN,URINE 0.2 mg/dL (0.2 mg/dL)
[2019-07-22 05:43] LABS: CALCIUM 8.2 mg/dL (8.5-10.1); GFR 76.2; POTASSIUM 3.3 mmol/L (3.5-5.1)
[2019-07-22 05:50] LABS: ALBUMIN 3.8 g/dL (3.4-5.0); ALBUMIN/GLOBULIN RATIO 1.2 (1.0-1.7); TOTAL BILIRUBIN 0.5 mg/dL (0.2-1.0)
[2019-07-22 05:52] LABS: BACTERIA,URINE FEW /HPF (0-FEW); SQUAMOUS EPITHELIAL CELL,UR OCC /LPF
--- NOTE | 2019-07-22 06:09 | RAD ---
Study: CT abdomen/pelvis without intravenous contrast Indication: Left flank pain. Comparison: 05/19/2018 Technique: Helical CT imaging performed of the abdomen and pelvis without the use of intravenous contrast. Sagittal and coronal reformats were obtained. One or more of the following individualized dose reduction techniques were utilized for this examination: 1. Automated exposure control 2. Adjustment of the mA and/or kV according to patient size 3. Use of iterative reconstruction technique. Findings: Inherently limited evaluation without intravenous contrast. Chest: Partially imaged right lower lobe nodule with the visualized portion measuring up to 6 mm. A few millimetric satellite nodules seen on image 3 series 2. A small nodule within the lingula is unchanged from the comparison. Liver: Subcentimeter focus of hypoattenuation on image 40 series 2 was present previously. Gallbladder/Biliary Tree: Within normal limits. Pancreas: Unremarkable. Spleen: Within normal limits for size. Adrenal Glands: Unremarkable. Kidneys/Ureters/Bladder: Multiple intrarenal stones bilaterally. There is again hydroureteronephrosis on the left but slightly worsened from the comparison. This is seen in the setting of two stones within the proximal ureter the more proximal of which measures 5.6 mm and the distal stone 4.4 mm. Two stones were present at this location on the comparison but measured larger in size. The more distal left ureter is collapsed. No progression of collecting system dilatation on the right with either unchanged caliectasis or peripelvic cysts. Peripelvic cysts likely present on the left as well. Redemonstrated left more so than right renal cortical thinning. Unchanged urinary bladder wall thickening. Reproductive Organs: Unchanged. Colon: Diverticulosis without diverticulitis. Mild constipation. Appendix: Surgically absent. Small Bowel: Nonobstructed. Stomach: Not well evaluated due to underdistention. Vasculature: Nonaneurysmal aorta. Lymph Nodes: Scattered mildly prominent upper abdominal lymph nodes are not significantly different in size. Scattered mesenteric lymph nodes are not pathologically enlarged. Peritoneum and Body Wall: Mild haziness of the central mesentery that is unchanged. No free fluid or air. No newly seen body wall abnormality. Bones: Scattered degenerative/chronic changes. No significant progression. Miscellaneous: None. Impression: 1. Moderate hydronephrosis/proximal hydroureter on the left with hydronephrosis present in 2019 as well but slightly worsened on this exam. There are again two stones within the proximal left ureter measuring 5.6 and 4.4 mm noting that the stones at this location previously measured slightly larger. Distal to the stones the ureter becomes collapsed. Given inability to pass the stones a ureteral stricture may be present. 2. Several additional nonobstructing intrarenal stones on both the right and left. Unchanged configuration of the right-sided collecting system. Bilateral peripelvic cysts and left more so than right renal parenchymal scarring. 3. Right lower lobe pulmonary nodule measuring approximately 6 mm with a few very small satellite nodules. The comparison studies did not include this portion of the lung in the zebya-ik-yhdn and the stability of these nodules is uncertain. Unless outside imaging studies become available that can confirm stability, follow-up CT in 6-12 months is recommended per Fleischner guidelines. 4. Additional unchanged findings as detailed above. Electronically signed by: DIXIE WALTERS MD (07/22/2019 6:06 AM) [id number]
[2019-07-22 06:37] VITALS: BP 199/84
[2019-07-22] MEDS ORDERED: HYDR-3164 PO (06:49)
[2019-07-22] MEDS ORDERED: TAMS0.4C97 PO (06:49)
== END 2019-07-22 06:52 | disposition home or self-care (01) ==
LOC: ER 04:51
DX: N20.0 Calculus of kidney (principal); R91.1 Solitary pulmonary nodule; E78.00 Pure hypercholesterolemia, unspecified; I10 Essential (primary) hypertension; I25.10 Atherosclerotic heart disease of native coronary artery without angina pectoris; Z90.89 Acquired absence of other organs; Z95.5 Presence of coronary angioplasty implant and graft
CPT/HCPCS: 36415; 74176; 80053; 81001; 85025; 96374; 99284; J1885

== ENCOUNTER → 2019-09-20 | Outpatient (CLI) | payer OTHER ==
[~2019-09-20] MED LIST changes: +HYDR-3164 PO
--- NOTE | 2019-09-20 14:15 | RAD ---
MR#: [id number] Date of Study: 09/20/2019 Ordering Physician: ROSALBA CALHOUN Referring Physician: BRENDA TREVIZO Tech: RT Marcus Gonzalez) (N) APPROVED REPORT Test Type: Exercise Stress Nurse/Tech: Erna Bone RN Test Indications: CAD Cardiac History: Hypertension Medications: See Electronic Medical Record Medical History: See Electronic Medical Record Resting ECG: SR with PVCs; Bigeminy with ST depression. Resting Heart Rate: 66 bpm Resting Blood Pressure: 126/72mmHg Pretest Chest Pain: No chest pain Nurse/Tech Notes S1S2, Lungs CTA Consent: The procedure was explained to the patient in lay terms. Informed consent was witnessed. Lb eout was entered into [employer]. History and Stress Test performed by RT Carlos (R) (N) Stress Symptoms No chest pain or symptoms. POST EXERCISE Reason for Termination: Reached target heart rate Target HR: 135 Max HR: 164 bpm 103% of Maximum Predicted HR: 159 bpm Exercise duration: 9:05 min:sec, 4 Stage Exercise capacity: 13.4METs Max Blood Pressure: 182/80mmHg Blood Pressure response to exercise: Normal blood pressure response during stress. Heart Rate response to exercise: WNL Chest Pain: No. Arrhythmia: No. INTERPRETATION Stress EKG Conclusion: The baseline EKG showed a sinus rhythm with mild nonspecific ST segment change s and frequent PVCs. The stress EKG showed minimal further nonspecific ST segment changes that are not diagnostic of ische mariangel. PVCs largely resolved. No EKG evidence of stress-induced ischemia. Imaging Protocol IMAGE PROTOCOL: Rest Tc-99m/stress Tc-99m 1 day Rest: Stress: Viability: Radiopharm.Tc99m CvcdpekhdUk99e Sestamibi Uatu78qYz 33mCi Duration 15min. 15min. Img Date 09/20/2019 09/20/2019 Inj-Img Vbtn72szm. 50min. Rest Admin Site:IV - Right AntecubitalAdministrator:SHAYLA Garcia Stress Admin Site: IV - Right AntecubitalAdministrator: Jeremías Valiente, RT (R)(N) STRESS DATA End Diast. Vol.107.0mlAv. Heart Rate78.0bpm End Syst. Vol.32.0mlCO Index BSA0.0L/min Myocardial Uvyl433.0gEject. Fyzcblqj82.0% Stress Rates Pk. Fill Rate2.90EDV/secLVtime Pk. Fill 155.70msec Pk. Empty Rate4.78ESV/secLVtime Pk. Kzogh973.70msec 03/26 Pk. Fill1.50EDV/sec Stress Scores Regional WT0.00Summed WT0.00 Regional WM0.00Summed WM0.00 LV Perfusion The stress scans show no significant defects. The rest scans showed no significant defects. Nuclear imaging shows no reversible ischemia or infarct. Wall Motion Left ventricular systolic function is normal with no regional wall motion abnormalities and an ejecti on fraction of 70%. LV Perf. Quant 17 Seg. SSS4.00 17 Seg. SRS9.00 17 Seg. SDS0.00 Stress Defect Extent (% LAD)3.80Rest Defect Extent (% LAD)9.40Rev. Defect Extent (% LAD)0.00 Stress Defect Extent (% LCX) 27.50Rest Defect Extent (% LCX)26.30Rev. Defect Extent (% LCX)0.00 Stress Defect Extent (% RCA)0.00Rest Defect Extent (% RCA)1.10Rev. Defect Extent (% RCA)0.00 Stress Defect Extent (% DAXA)8.30Rest Defect Extent (% DAXA)12.60Rev. Defect Extent (% DAXA)0.00 Conclusion 1. Good exercise tolerance with the patient walking for 9 minutes on a Ezio protocol. 2. No chest pain with exertion. 3. Resting PVCs resolved with exertion. 4. No EKG evidence of stress-induced ischemia. 5. Nuclear imaging shows no reversible ischemia or infarct. 6. Normal left ventricular systolic function with an ejection fraction of 70%. 7. Moderately low to low risk treadmill nuclear stress test. Signed by : Chiki Benjamin MD Electronically Approved : 09/20/2019 14:14:48
--- NOTE | 2019-09-20 14:22 | CARD ---
MR#: [id number] Date of Study: 09/20/2019 Ordering Physician: ROSALBA CALHOUN, Referring Physician: ROSALBA CALHOUN, Tech: Micaela Garcia APPROVED REPORT EXAM: Two-dimensional and M-mode echocardiogram with Doppler and color Doppler. Other Information Quality : AverageHR: 74bpm INDICATION Cardiac Disease: CVD RISK FACTORS Hypertension 2D DIMENSIONS RVDd3.0 (2.9-3.5cm)Left Atrium(2D)2.9 (1.6-4.0cm) IVSd0.9 (0.7-1.1cm)Aortic Root(2D)2.8 (2.0-3.7cm) LVDd4.6 (3.9-5.9cm)LVOT Diameter1.9 (1.8-2.4cm) PWd1.1 (0.7-1.1cm)LVDs2.5 (2.5-4.0cm) FS (%) 44.9 %SV72.9 ml Aortic Valve AoV Peak Jm.145.4cm/sAoV VTI24.5cm AO Peak GR.8.5mmHgLVOT Peak Jm.98.8cm/s LVOT VTI 18.43cmAO Mean GR.4mmHg DAHIANA (VMAX)1.75kj5MNE (VTI)2.06cm2 Mitral Valve MV E Maeoxgsm67.9cm/sMV DECEL DLXZ898nu MV A Aurmldgv58.7cm/sMV E Mean Gr.2mmHg MV HRA10rmX/A Ratio0.9 MVA (PHT)2.25cm2 TDI E/Lateral E'5.1E/Medial E'6.3 Pulmonary Valve PV Peak Gpwzimxt67.6cm/sPV Peak Grad.3mmHg Tricuspid Valve TR P. Ohkkkscg017al/sRAP UQGFJVAL0vpMm TR Peak Gr.55naZjKOOJ85biHr Pulmonary Vein S1 Tvekxqek08.9cm/sD2 Lqnfsonz89.6cm/s PVa mdyhrkwi714ryft LEFT VENTRICLE The left ventricle is normal size. There is normal left ventricular wall thickness. The left ventricu lar systolic function is normal and the ejection fraction is within normal range. The Ejection Fracti on is 55-60%. There is normal LV segmental wall motion. Transmitral Doppler flow pattern is Grade I-a bnormal relaxation pattern. RIGHT VENTRICLE The right ventricle is normal size. There is normal right ventricular wall thickness. The right ventr icular systolic function is normal. ATRIA The left atrium size is normal. The right atrium size is normal. The interatrial septum is intact wit h no evidence for an atrial septal defect or patent foramen ovale as noted on 2-D or Doppler imaging. AORTIC VALVE The aortic valve is thickened but opens well. Doppler and Color Flow revealed no significant aortic r egurgitation. There is no significant aortic valvular stenosis. Calculated aortic valve area is 2.21 cm2 with maximum pressure gradient of 10 mmHg and mean pressure gradient of 5 mmHg. MITRAL VALVE The mitral valve is thickened but opens well. There is no evidence of mitral valve prolapse. There is no mitral valve stenosis. Doppler and Color-flow revealed trace mitral regurgitation. TRICUSPID VALVE The tricuspid valve is normal in structure and function. Doppler and Color Flow revealed trace tricus pid valve regurgitation noted with an estiamted PAP of 20 mmHg. There is no tricuspid valve stenosis. PULMONIC VALVE The pulmonic valve is not well visualized. Doppler and Color Flow revealed trace to mild pulmonic vel vular regurgitation. GREAT VESSELS The aortic root is normal in size. The ascending aorta is normal in size. The IVC is normal in size a nd collapses >50% with inspiration. PERICARDIAL EFFUSION There is no evidence of significant pericardial effusion. Critical Notification Critical Value: No <Conclusion> The left ventricle is normal size. The left ventricular systolic function is normal and the ejection fraction is within normal range. The Ejection Fraction is 55-60%. There is normal LV segmental wall motion. Doppler and Color Flow revealed no significant aortic regurgitation. There is no significant aortic valvular stenosis. Doppler and Color-flow revealed trace mitral regurgitation. Doppler and Color Flow revealed trace tricuspid valve regurgitation noted with an estiamted PAP of 20 mmHg. Signed by : Chiki Benjamin MD Electronically Approved : 09/20/2019 14:21:18
== END | disposition home or self-care (01) ==
LOC: NM 07:59
PROVIDERS: ATTEND Internal Medicine Cardiovascular Disease
DX: I37.1 Nonrheumatic pulmonary valve insufficiency (principal); I25.10 Atherosclerotic heart disease of native coronary artery without angina pectoris
CPT/HCPCS: 78452; 93017; 93306; A9500

== ENCOUNTER → 2020-10-25 | Outpatient (CLI) | payer MEDICARE ==
[2020-10-25 10:09] LABS: CHOLESTEROL/HDL RATIO 3.6
--- NOTE | 2020-10-25 10:18 | CARD ---
MR#: [id number] Date of Study: 10/25/2020 Ordering Physician: ROSALBA CALHOUN, Referring Physician: ROSALBA CALHOUN, Tech: Micaela Garcia [facility] APPROVED REPORT EXAM: Two-dimensional and M-mode echocardiogram with Doppler and color Doppler. Other Information Quality : AverageHR: 62bpm INDICATION Cardiac Disease: CAD RISK FACTORS Hypertension Hyperlipidemia 2D DIMENSIONS RVDd3.0 (2.9-3.5cm)Left Atrium(2D)3.0 (1.6-4.0cm) IVSd0.8 (0.7-1.1cm)Aortic Root(2D)3.4 (2.0-3.7cm) LVDd5.3 (3.9-5.9cm)LVOT Diameter2.0 (1.8-2.4cm) PWd0.9 (0.7-1.1cm)LVDs3.4 (2.5-4.0cm) FS (%) 36.5 %SV88.6 ml LVEF(%)65.8 (>50%) Aortic Valve AoV Peak Jm.136.2cm/sAoV VTI25.3cm AO Peak GR.7.4mmHgLVOT Peak Jm.115.1cm/s LVOT VTI 22.43cmAO Mean GR.4mmHg DAHIANA (VMAX)1.28kg6KGY (VTI)2.78cm2 Mitral Valve MV E Bszdovdv07.0cm/sMV DECEL PTGX020ey MV A Jijdmiew54.7cm/sMV IBO242fi E/A Ratio0.9MVA (PHT)2.00cm2 TDI E/Lateral E'4.1E/Medial E'4.8 Pulmonary Valve PV Peak Urcfceps99.6cm/sPV Peak Grad.4mmHg Tricuspid Valve TR P. Jnaygntz932il/sRAP ZNNUWXRG2bvIo TR Peak Gr.74emCuTSLL34jjVn Pulmonary Vein S1 Ljnfolok63.1cm/sD2 Ksxenmnz88.6cm/s PVa kaguwyrc483cezl LEFT VENTRICLE The left ventricle is normal size. There is normal left ventricular wall thickness. The left ventricu lar systolic function is normal and the ejection fraction is within normal range. The Ejection Fracti on is 55-60%. There is normal LV segmental wall motion. The left ventricular diastolic function and f illing is normal for age. RIGHT VENTRICLE The right ventricle is normal size. There is normal right ventricular wall thickness. The right ventr icular systolic function is normal. ATRIA The left atrium size is normal. The right atrium size is normal. The interatrial septum is intact wit h no evidence for an atrial septal defect or patent foramen ovale as noted on 2-D or Doppler imaging. AORTIC VALVE The aortic valve is normal in structure and function. Doppler and Color Flow revealed no significant aortic regurgitation. There is no significant aortic valvular stenosis. Calculated aortic valve area is 2.90 cm2 with maximum pressure gradient of 9 mmHg and mean pressure gradient of 5 mmHg. MITRAL VALVE The mitral valve is normal in structure and function. There is no evidence of mitral valve prolapse. There is no mitral valve stenosis. Doppler and Color Flow revealed no mitral valve regurgitation note d. TRICUSPID VALVE The tricuspid valve is normal in structure and function. Doppler and Color Flow revealed trace tricus pid regurgitation with an estimated PAP of 31 mmHg. There is no tricuspid valve stenosis. PULMONIC VALVE The pulmonic valve is not well visualized. Doppler and Color Flow revealed trace to mild pulmonic vel vular regurgitation. There is no pulmonic valvular stenosis. GREAT VESSELS The aortic root is normal in size. The ascending aorta is normal in size. The IVC is normal in size a nd collapses >50% with inspiration. PERICARDIAL EFFUSION There is no evidence of significant pericardial effusion. Critical Notification Critical Value: No <Conclusion> The left ventricular systolic function is normal and the ejection fraction is within normal range. Th e Ejection Fraction is 55-60%. There is normal LV segmental wall motion. Signed by : Brenden Wright, Electronically Approved : 10/25/2020 10:17:50
== END ==
LOC: ECHO 08:42
PROVIDERS: ATTEND Internal Medicine Cardiovascular Disease
DX: I37.1 Nonrheumatic pulmonary valve insufficiency (principal); I25.10 Atherosclerotic heart disease of native coronary artery without angina pectoris; E78.5 Hyperlipidemia, unspecified
CPT/HCPCS: 36415; 80061; 93306

== ENCOUNTER → 2021-04-06 | Outpatient (CLI) | payer MEDICARE ==
--- NOTE | 2021-04-06 14:04 | RAD ---
MR#: [id number] Date of Study: 04/06/2021 Ordering Physician: ROSALBA EPPS, Referring Physician: ROSALBA EPPS, Tech: Dino Escobar MBA, RDMS, RVT, RDCS, RTR APPROVED REPORT Patient Location: OUT-PATIENT Laterality:Bilateral Indications Bruit Doppler Spectral Velocity Analysis Right Left pCCA 110/26 cm/spCCA 168/35 cm/s mCCA 118/22 cm/smCCA 139/32 cm/s dCCA 127/30 cm/sdCCA 118/29 cm/s Bulb 103/24 cm/sBulb 108/24 cm/s ECA 121/ cm/sECA 108/ cm/s pICA 83/25 cm/spICA 83/28 cm/s Slim 105/38 cm/smICA 103/29 cm/s dICA 92/36 cm/sdICA 101/40 cm/s Vert. 50/ cm/sVert. 57/ cm/s Subcl. 95/ cm/sSubcl. 147/ cm/s ICA/CCA 0.83ICA/CCA 0.61 Findings Grayscale images of extracranial carotid arteries bilaterally showed mild diffuse atherosclerosis. C olor duplex and spectral waveform analysis showed normal velocities in bilateral common carotid, inte rnal carotid and external carotid arteries suggestive of 0 to less than 50% stenosis. The ICA to CCA ratio is within normal limits. The vertebral arteries bilaterally showed antegrade flow with normal velocities. No significant stenosis was noted Critical Notification Critical Value: No <Conclusion> Carotid arterial duplex scan did not show any significant carotid artery stenosis. Signed by : Rosalba Epps, Electronically Approved : 04/06/2021 14:04:03
== END ==
LOC: US 13:13
PROVIDERS: ATTEND Internal Medicine Cardiovascular Disease
DX: I65.23 Occlusion and stenosis of bilateral carotid arteries (principal); R09.89 Other specified symptoms and signs involving the circulatory and respiratory systems
CPT/HCPCS: 93880

== ENCOUNTER → 2021-04-24 | Outpatient (CLI) | payer MEDICARE ==
--- NOTE | 2021-04-24 11:14 | RAD ---
EXAMINATION: Magnetic resonance imaging (MRI) of the brain and brainstem without contrast 04/24/2021 9: 25 AM HISTORY: Left arm weakness, left leg weakness TECHNIQUE: Multiplanar multi-weighted MRI of the brain and brainstem was performed without intravenou s contrast using the general brain protocol. COMPARISON: None available. FINDINGS: The scalp and calvarium are normal. The superior sagittal sinus demonstrates normal venous flow. The corpus callosum is normal in shape and signal intensity. The posterior fossa is unremarkable. The p ituitary and sella are normal. The brainstem and craniocervical junction are unremarkable. There is ill-defined T2 signal hyperintensity along the corticospinal tracts bilaterally extending to the midb rain. Diffusion weighted images reveal no hyperintensities to suggest acute cerebral infarction. The suscep tibility weighted sequences reveal no evidence of acute or chronic hemorrhage. The ventricles are nor mal in size and position without evidence of hydrocephalus. The paranasal sinuses are normal. The visualized portions of the mastoids are unremarkable. The orbi ts appear normal. Normal flow voids are demonstrated in the carotid arteries and basilar artery. IMPRESSION: 1. No evidence for acute or subacute ischemia. 2. There is T2 signal hyperintensity involving the cortical spinal tracts bilaterally. Correlate with underlying neuromotor degenerative disease (i.e. ALS). Findings could be associated with 3T magnet, although more conspicuous than typically seen. 3 month follow-up MRI could be of benefit. Electronically signed by: Rama Dawson MD (04/24/2021 11:12 AM) [id number]
== END ==
LOC: MRI 09:17
PROVIDERS: ATTEND Physician Assistant Medical
DX: G93.89 Other specified disorders of brain (principal); R53.1 Weakness
CPT/HCPCS: 70551

== ENCOUNTER 2021-06-20 02:08 | Emergency (ER) | payer MEDICARE ==
[~2021-06-20] VITALS: Ht 185.4 cm; Wt 83.0 kg
[~2021-06-20 02:08] MED LIST changes: +BACL10TA PO; +HYDR-2145 PO
[2021-06-20 03:00] LABS: BASO # 0.1 x10^3/uL (0.0-0.2); BASO % 1 % (0-3); EOS # 0.2 x10^3/uL (0.0-0.7); EOS % 3 % (0-3); HEMATOCRIT 45.5 % (39.0-53.0); HEMOGLOBIN 15.7 g/dL (13.0-17.5); LYMPH # 2.2 x10^3/uL (1.0-4.8); LYMPH % 33 % (24-48); MEAN CORPUSCULAR HEMOGLOBIN 31 pg (25-35); MEAN CORPUSCULAR HGB CONC 35 g/dL (31-37); MEAN CORPUSCULAR VOLUME 88 fL (79-100); MONO # 0.5 x10^3/uL (0.0-1.1); MONO % 8 % (0-9); NEUT # 3.7 x10^3/uL (1.8-7.7); NEUT % 56 % (31-73); PLATELET COUNT 218 x10^3/uL (140-400); RED BLOOD COUNT 5.15 x10^6/uL (4.30-5.70); RED CELL DISTRIBUTION WIDTH 13.3 % (11.5-14.5); WHITE BLOOD COUNT 6.7 x10^3/uL (4.0-11.0)
--- NOTE | 2021-06-20 03:02 | EKG ---
[facility] [address] [place] [address] Test Date: 2021-06-20 Test Time: 02:49:31 Pat Name: WARNER COTTON Department: Room: Gender: M Extract Operator: : 1960 Requested By: TRACE MORALES Order Number: [id number] Reading MD: Tung Epps Measurements Intervals [place] Rate: 78 P: 52 [place]: 170 QRS: 23 QRSD: 94 T: 48 QT: 378 QTc: 434 Interpretive Statements SINUS RHYTHM NORMAL ECG Electronically Signed On 06-23-2021 21:38:22 CDT by Tung Epps
[2021-06-20 03:11] LABS: CALCIUM 9.3 mg/dL (8.5-10.1); CREATININE 0.9 mg/dL (0.7-1.3); GFR 85.5; POTASSIUM 3.8 mmol/L (3.5-5.1)
--- NOTE | 2021-06-20 03:11 | RAD ---
EXAMINATION: XR CHEST 1V CLINICAL HISTORY: Shortness of breath. EXAM DATE/TIME: 06/20/2021 2:35 AM COMPARISON: 05/21/2021 FINDINGS: Lines, Tubes, and Devices: None. Cardiomediastinal Silhouette: Normal heart size. Lungs and Pleura: No evidence of focal airspace consolidation or pleural effusion. Mild bibasilar sub segmental atelectasis and/or scarring, similar to prior study. Pulmonary vasculature unremarkable. Bones and Soft Tissues: Degenerative changes in the thoracic spine. IMPRESSION: No evidence of acute cardiopulmonary abnormality or significant interval change. Electronically signed by: Rizwan Engle DO (06/20/2021 3:08 AM) IRENA
[2021-06-20 03:16] LABS: ALBUMIN/GLOBULIN RATIO 1.4 (1.0-1.7); TOTAL BILIRUBIN 0.4 mg/dL (0.2-1.0); TOTAL PROTEIN 6.9 g/dL (6.4-8.2)
--- NOTE | 2021-06-20 03:18 | PHYS DOC ---
Past Medical History Past Medical History: CAD, High Cholesterol, Hypertension Additional Past Medical Histor: PT is deaf Past Surgical History: No Surgical History Additional Past Surgical Histo: stent, Lithotripsy Smoking Status: Never Smoker Alcohol Use: None Drug Use: None Adult General Chief Complaint Chief Complaint: SHORTNESS OF BREATH HPI HPI The patient is a 60-year-old deaf male with a history of hypertension, hyperlipidemia, coronary artery disease status post stenting, anxiety on alprazolam and several months of difficulty swallowing and left-sided weakness with abnormal MRI brain here at [facility], concerning for ALS. Patient has been refe rred to the ALS clinic at [facility] but his first appointment is not until July. Mr. Boykin presents for evaluation of a sensation of shortness of breath with onset about an hour prior to arrival. States that he transiently felt like he could not get a good breath in while in bed. Denies feeling poorly in any way before he went to bed. States his neurologic symptoms are about the same as they have been, and not any worse than they have been. Denies any other focal or specific symptoms at all and specifically denies fevers, nausea or vomiting, upper respiratory congestion/rhinorrhea, cough, sore throat, chest pain of any kind, abdominal pain of any kind, flank pain, midline back pain, dysuria, hematuria, polyuria or oliguria, changes in bowel habits, pain or swelling to arms or legs. Patient is alert and pleasantly and appropriately interactive and in absolutely no acute distress with appropriate vital signs upon initial evaluation here in the emergency department. He is not dyspneic and oxygen saturation is appropriate. States he no longer feels short of breath. Review of Systems Review of Systems A 12 point review of systems was completed and was negative except where noted in HPI above. Allergies Allergies Allergies Coded Allergies Type Severity Reaction Last Updated Verified No Known Drug Allergies 06/01/18 No Physical Exam Physical Exam 60-year-old male appearing nontoxic and in no acute distress. Head is normocephalic and atraumatic. Neck is supple and nontender. Oropharynx is moist. Lungs are clear to auscultation at all stations. There is a normal S1 and S2 without rubs or gallops and capillary refill is appropriate, less than 2 seconds globally. Abdomen is soft, nontender and nondistended. Skin is warm and dry without cyanosis, clubbing or edema. Psychiatrically, the patient demonstrates appropriate mood and affect and is alert. Neurologically, patient has some left-sided weakness which is chronic and unchanged. Otherwise, nonfocal neurologic exam. Evaluation of the extremities reveals radial, DP and PT pulses 2+ and equal bilaterally, capillary refill less than 2 seconds, hands and feet warm and well-perfused. Chronicappearing contracture and weakness of the left arm. Current Patient Data Vital Signs Vital Signs Date Time Temp Pulse Resp B/P (MAP) Pulse Ox O2 Delivery O2 Flow Rate FiO2 06/20/21 02:56 98.1 80 20 144/76 (98) 98 Room Air 98.1 Lab Values Laboratory Tests Test 06/20/21 02:50 White Blood Count 6.7 x10^3/uL (4.0-11.0) Red Blood Count 5.15 x10^6/uL (4.30-5.70) Hemoglobin 15.7 g/dL (13.0-17.5) Hematocrit 45.5 % (39.0-53.0) Mean Corpuscular Volume 88 fL (79-100) Mean Corpuscular Hemoglobin 31 pg (25-35) Mean Corpuscular Hemoglobin Concent 35 g/dL (31-37) Red Cell Distribution Width 13.3 % (11.5-14.5) Platelet Count 218 x10^3/uL (140-400) Neutrophils (%) (Auto) 56 % (31-73) Lymphocytes (%) (Auto) 33 % (24-48) Monocytes (%) (Auto) 8 % (0-9) Eosinophils (%) (Auto) 3 % (0-3) Basophils (%) (Auto) 1 % (0-3) Neutrophils # (Auto) 3.7 x10^3/uL (1.8-7.7) Lymphocytes # (Auto) 2.2 x10^3/uL (1.0-4.8) Monocytes # (Auto) 0.5 x10^3/uL (0.0-1.1) Eosinophils # (Auto) 0.2 x10^3/uL (0.0-0.7) Basophils # (Auto) 0.1 x10^3/uL (0.0-0.2) Sodium Level 142 mmol/L (136-145) Potassium Level 3.8 mmol/L (3.5-5.1) Chloride Level 106 mmol/L (98-107) Carbon Dioxide Level 25 mmol/L (21-32) Anion Gap 11 (6-14) Blood Urea Nitrogen 8 mg/dL (8-26) Creatinine 0.9 mg/dL (0.7-1.3) Estimated GFR (Cockcroft-Gault) 85.5 BUN/Creatinine Ratio 9 (6-20) Glucose Level 106 mg/dL (70-99) H Calcium Level 9.3 mg/dL (8.5-10.1) Total Bilirubin 0.4 mg/dL (0.2-1.0) Aspartate Amino Transferase (AST) 15 U/L (15-37) Alanine Aminotransferase (ALT) 29 U/L (16-63) Alkaline Phosphatase 65 U/L (46-116) Troponin I High Sensitivity 6 ng/L (4-75) AM-Lna-O-Type Natriuretic Peptide 11 pg/mL (0-124) Total Protein 6.9 g/dL (6.4-8.2) Albumin 4.0 g/dL (3.4-5.0) Albumin/Globulin Ratio 1.4 (1.0-1.7) Laboratory Tests 06/20/21 02:50 Laboratory Tests 06/20/21 02:50 EKG EKG Sinus rhythm, rate 78, no acute ST elevation or depression, MT 170, QRS 94, QTc 434, EP interpretation. Nonischemic tracing, intervals appropriate. Radiology/Procedures Radiology/Procedures EXAMINATION: XR CHEST 1V CLINICAL HISTORY: Shortness of breath. EXAM DATE/TIME: 06/20/2021 2:35 AM COMPARISON: 05/21/2021 FINDINGS: Lines, Tubes, and Devices: None. Cardiomediastinal Silhouette: Normal heart size. Lungs and Pleura: No evidence of focal airspace consolidation or pleural effusion. Mild bibasilar subsegmental atelectasis and/or scarring, similar to prior study. Pulmonary vasculature unremarkable. Bones and Soft Tissues: Degenerative changes in the thoracic spine. IMPRESSION: No evidence of acute cardiopulmonary abnormality or significant interval change. Electronically signed by: Rizwan Naylor DO (06/20/2021 3:08 AM) [facility] DICTATED and SIGNED BY: RIZWAN ANYLOR DO DATE: 06/20/21 0302 Course & Med Decision Making Course & Med Decision Making Well-appearing 60-year-old gentleman with normal vital signs and generally reassuring clinical examination (only findings of interest are his chronic left- sided weakness) who presents for evaluation of a transient sensation of shortness of breath while in bed overnight. Will check labs, EKG and chest x- ray as noted and will then reevaluate. 0349: Patient has been observed uneventfully for some time here in the emergency department. He remains completely asymptomatic. He states he feels well. Labs, EKG and chest x-ray are without any evidence of acute process and vital signs remain entirely appropriate here in the emergency department. Review of cardiac telemetry demonstrates no arrhythmias or other acute process aside from a very occasional PVC. No evidence of emergency medical condition has been identified. In view of reassuring work-up in this well-appearing asymptomatic gentleman, will discharge home to follow-up closely with primary care and with his neurologist. Patient and his understand that if he feels worse instead of better, has recurrent symptoms or develops other new symptoms of concern that he should return to the emergency department right away for reevaluation. All questions are answered. Dragon Disclaimer Dragon Disclaimer This electronic medical record was generated, in whole or in part, using a voice recognition dictation system. Departure Departure Impression: Primary Impression: Shortness of breath Disposition: 01 HOME / SELF CARE / HOMELESS Condition: STABLE Referrals: AYAN SHELLEY (PCP) Patient Instructions: Shortness of Breath Additional Instructions: Follow-up very closely with your primary care doctor in the office in the next 2 to 4 days for a reevaluation of your symptoms and a discussion of next best steps in care. Follow-up very closely with your neurologist as well. Drink plenty of fluids to stay hydrated and get plenty of rest. Return to the emergency department right away for worsening symptoms of any kind or with any other new symptoms of concern. TRACE MORALES MD Jun 20, 2021 03:18
[2021-06-20 03:43] VITALS: BP 143/81
== END 2021-06-20 04:19 | disposition home or self-care (01) ==
LOC: ER 02:08
DX: R06.02 Shortness of breath (principal); I10 Essential (primary) hypertension; E78.00 Pure hypercholesterolemia, unspecified; I25.10 Atherosclerotic heart disease of native coronary artery without angina pectoris
CPT/HCPCS: 36415; 71045; 80053; 83880; 84484; 85025; 93005; 99285-25

== ENCOUNTER 2021-06-20 06:18 | Emergency (ER) | payer MEDICARE ==
[~2021-06-20] VITALS: Ht 185.4 cm; Wt 81.8 kg
--- NOTE | 2021-06-20 06:31 | PHYS DOC ---
Past Medical History Past Medical History: CAD, High Cholesterol, Hypertension Additional Past Medical Histor: PT is deaf Past Surgical History: No Surgical History Additional Past Surgical Histo: stent, Lithotripsy Smoking Status: Never Smoker Alcohol Use: None Drug Use: None General Adult HPI: HPI: Patient is a 60 year old male who presents with his for report of dyspnea. He was seen here a few hours ago for chest pain and dyspnea symptoms. His ED work-up was unremarkable at the time. He was discharged home. He presented within an hour to an hour and a half after being discharged. On arrival, he denies any active symptoms. He has a history of significant anxiety. He is prescribed alprazolam 0.25 mg 3 times daily as needed. He did not take this medication when he got home and experienced the dyspnea and admitted anxiety symptoms. His has contacted his neurologist and his primary care doctor and informed him that she thinks he needs higher doses, and reportedly his neurologist is going to call in a higher dose of medications. Patient denies any chest pain. He does describe that he felt like he had some epigastric discomfort and nausea, but this is now resolved. Denies any active dyspnea. He denies cough. He reports that he felt like something was stuck in his throat at home, but symptoms resolved quickly, continue to be resolved on arrival. He denies dizziness, diaphoresis. He denies abdominal pain currently. No nausea and vomiting symptoms currently. He has chronic left-sided weakness, he has been referred to the ALS clinic at [facility] by his neurologist here. No acute changes in weakness reported. No fall or injury reported. Patient is hearing impaired, and his assists with translation. Review of Systems: Review of Systems: As per HPI Heart Score: C/O Chest Pain: Yes HEART Score for Chest Pain: HEART Score for Chest Pain Response (Comments) Value History Slighlty/Non-Suspicious 0 ECG Normal 0 Age >45 - < 65 1 Risk Factors 1 or 2 Risk Factors 1 Total 2 Risk Factors: Risk Factors: DM, Current or recent (<one month) smoker, HTN, HLP, family history of CAD, obesity. Risk Scores: Score 0 - 3: 2.5% MACE over next 6 weeks - Discharge Home Score 4 - 6: 20.3% MACE over next 6 weeks - Admit for Clinical Observation Score 7 - 10: 72.7% MACE over next 6 weeks - Early Invasive Strategies Allergies: Allergies: Allergies Coded Allergies Type Severity Reaction Last Updated Verified No Known Drug Allergies 06/01/18 No Physical Exam: PE: Constitutional: Well developed, well nourished, no acute distress, non-toxic appearance. [] HENT: Normocephalic, atraumatic, oropharynx is patent and clear, mucous members are moist. Controlling secretions well. No secretions. No oropharyngeal edema or erythema. No facial or oral trauma or edema noted. External ears are normal bilaterally. Eyes: PERRLA, EOMI, conjunctiva normal, no discharge. No scleral icterus Neck: Normal range of motion, no tenderness, supple, no stridor. [employer] is mi dline. No meningismus. Cardiovascular:Heart rate regular rhythm, 2 radial pulses bilaterally Lungs & Thorax: Lungs are clear to auscultation bilaterally without rales, rhonchi or wheezes. No evidence of chest wall trauma. Equal chest rise. No crepitus or subcutaneous emphysema. No stridor. No evidence of respiratory distress. Abdomen: Abdomen is soft, nondistended, nontender to palpation. No palpable pulsatile mass. No palpable masses organomegaly. No CVA tenderness. No flank abdominal ecchymoses. Skin: Warm, dry, no erythema, no rash. No jaundice. No open wounds. Back: No tenderness, no CVA tenderness. Limited range of motion. No midline te nderness or step-offs. No deformity Extremities: No tenderness, no cyanosis, no clubbing, ROM intact, no lower extremity edema no calf tenderness. Mild left hand edema, chronic in nature and unchanged. No tenderness Neurologic: He is alert, awake, no facial asymmetry, chronic and unchanged left upper extremity weakness, diffuse generalized weakness, no acute focal weakness noted. He is hearing impaired, so speech is limited, though he is interactive appropriately for current situation and chronic clinical condition. Psychologic: Affect is flat, he is cooperative and pleasant. EKG: EKG: EKG is interpreted at 0632 Rhythm is sinus Rate is 80 bpm [place] is normal No STEMI Radiology/Procedures: Radiology/Procedures: [] Course & Med Decision Making: Course & Med Decision Making Pertinent Labs and Imaging studies reviewed. (See chart for details) I initially ordered repeat labs, imaging studies and EKG. EKG is unremarkable. Ultimately, the patient has declined IV, declined blood work and declined imaging studies. I did review all of his ED work-up from a few hours ago, all of which appears to be unremarkable. The patient is resting comfortably. He manifests no evidence of respiratory distress or hypoxia. Vital signs are stab le. I had lengthy discussions with the patient and his regarding the findings, differential diagnosis and plan of care. I told the patient that if he is having an acute panic attack or anxiety issues, he may take the prescribed alprazolam as directed. In the meantime, I do recommend he see his PCP to discuss more appropriate, long-term medications to help with generalized anxiety and panic disorder. I will defer specific medications to his PCP for, but I did explain that there are multiple medications, including medications like Zoloft or Lexapro that could possibly be helpful. He may require formal psychiatric consultation as well. At this time, he is stable, asymptomatic, is declining further work-up, he will be discharged home. I gave very strict return precautions to the patient and his . They indicate understanding. Yessenia Disclaimer: Yessenia Disclaimer: This electronic medical record was generated, in whole or in part, using a voice recognition dictation system. Departure Departure Impression: Primary Impression: Dyspnea Qualified Codes: R06.00 - Dyspnea, unspecified Additional Impression: Anxiety Disposition: 01 HOME / SELF CARE / HOMELESS Condition: STABLE Referrals: AYAN SHELLEY (PCP) Patient Instructions: Anxiety and Panic Attacks, Shortness of Breath Additional Instructions: Please call your primary care doctor's office this morning and discuss being seen for your recurrent and worsening anxiety issues. You may need to be placed on a maintenance medication that you take daily to help with your generalized anxiety. I will defer specific medications to your primary care doctor. If you need increased doses of your Xanax, then please discuss that with your primary care doctor as well. Return to the ER for chest pain, more severe shortness of breath, abdominal pain, vomiting, worsening weakness, if you are acutely injured, or for any other concerns. When you have these anxiety or panic attacks, it may be helpful for you to perform some deep breathing exercises, in addition to taking your Xanax. BI FONSECA DO Jun 20, 2021 06:31
[2021-06-20 07:38] VITALS: BP 112/70
--- NOTE | 2021-06-20 11:22 | EKG ---
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
== END 2021-06-20 07:45 | disposition home or self-care (01) ==
LOC: ER 06:18
DX: R06.00 Dyspnea, unspecified (principal); F41.9 Anxiety disorder, unspecified; R07.89 Other chest pain; I25.10 Atherosclerotic heart disease of native coronary artery without angina pectoris; E78.00 Pure hypercholesterolemia, unspecified; I10 Essential (primary) hypertension
CPT/HCPCS: 93005; 99283; 99285-25

== ENCOUNTER 2021-07-01 19:53 | Emergency (ER) | payer MEDICARE ==
[~2021-07-01] VITALS: Ht 193 cm; Wt 81.1 kg
[2021-07-01 21:22] LABS: AMORPHOUS SEDIMENT,UR PRESENT /HPF; BACTERIA,URINE 0 /HPF (0-FEW)
[2021-07-01 21:40] LABS: HEMATOCRIT 47.3 % (39.0-53.0); HEMOGLOBIN 16.4 g/dL (13.0-17.5); RED BLOOD COUNT 5.35 x10^6/uL (4.30-5.70); RED CELL DISTRIBUTION WIDTH 13.5 % (11.5-14.5); WHITE BLOOD COUNT 7.4 x10^3/uL (4.0-11.0)
[2021-07-01 21:47] LABS: CALCIUM 9.4 mg/dL (8.5-10.1); CREATININE 0.8 mg/dL (0.7-1.3)
[2021-07-01 21:55] LABS: ALBUMIN/GLOBULIN RATIO 1.2 (1.0-1.7); TOTAL BILIRUBIN 0.5 mg/dL (0.2-1.0); TOTAL PROTEIN 7.4 g/dL (6.4-8.2)
--- NOTE | 2021-07-01 22:32 | RAD ---
Exam: Abdomen one view INDICATION: Constipation, right-sided abdominal pain TECHNIQUE: Upright view the abdomen Comparisons: None FINDINGS: The lung bases are clear. Gaseous distention of loops of large and small bowel in the visualized upper abdomen. No suspicious masses or calcifications. Visual is osseous structures are unremarkable. IMPRESSION: Mild gaseous distention throughout the visualized large and small bowel. Electronically signed by: Tiny Jauregui MD (07/01/2021 10:30 PM) JEAN
--- NOTE | 2021-07-01 23:10 | PHYS DOC ---
Past Medical History Past Medical History: CAD, High Cholesterol, Hypertension Additional Past Medical Histor: PT is deaf, ALS Past Surgical History: Other Additional Past Surgical Histo: stent, Lithotripsy Smoking Status: Never Smoker Alcohol Use: None Drug Use: None General Adult EDM: Chief Complaint: BACK PAIN - NO INJURY HPI: HPI: Patient is a 60 year old male who presents with right-sided abdominal pain back pain and right arm pain. Onset of symptoms began suddenly and are now gone. Predominance of the pain was in the right lower abdomen with radiation into the groin. Past medical history of kidney stones. Also possibly has a history of ALS. Patient is deaf and his mother is the head of partner development for [employer]. She states that he has had kidney stones in the past that were treated just conservatively. Has an appointment coming up with a urologist as well. No vomiting or diarrhea. Denies any issues with constipation. Review of Systems: Review of Systems: Constitutional: Denies fever or chills. [] Eyes: Denies change in visual acuity. [] HENT: Denies nasal congestion or sore throat. [] Respiratory: Denies cough or shortness of breath. [] Cardiovascular: Denies chest pain or edema. [] GI: Complaining of right lower abdominal pain which is now gone, denies , nausea, vomiting, bloody stools or diarrhea. [] : Denies dysuria. [] Musculoskeletal: Denies back pain or joint pain. [] Integument: Denies rash. [] Neurologic: Denies headache, focal weakness or sensory changes. [] Endocrine: Denies polyuria or polydipsia. [] Lymphatic: Denies swollen glands. [] Psychiatric: Denies depression or anxiety. [] Heart Score: C/O Chest Pain: No Risk Factors: Risk Factors: DM, Current or recent (<one month) smoker, HTN, HLP, family history of CAD, obesity. Risk Scores: Score 0 - 3: 2.5% MACE over next 6 weeks - Discharge Home Score 4 - 6: 20.3% MACE over next 6 weeks - Admit for Clinical Observation Score 7 - 10: 72.7% MACE over next 6 weeks - Early Invasive Strategies Allergies: Allergies: Allergies Coded Allergies Type Severity Reaction Last Updated Verified No Known Drug Allergies 06/01/18 No Physical Exam: PE: Constitutional: Well developed, well nourished, no acute distress, non-toxic appearance. [] HENT: Normocephalic, atraumatic, bilateral external ears normal, oropharynx moist, no oral exudates, nose normal. [] Eyes: PERRLA, EOMI, conjunctiva normal, no discharge. [] Neck: Normal range of motion, no tenderness, supple, no stridor. [] Cardiovascular:Heart rate regular rhythm, no murmur [] Lungs & Thorax: Bilateral breath sounds clear to auscultation [] Abdomen: Bowel sounds normal, soft, no tenderness, no masses, no pulsatile masses. [] Skin: Warm, dry, no erythema, no rash. [] Back: No tenderness, no CVA tenderness. [] Extremities: No tenderness, no cyanosis, no clubbing, ROM intact, no edema. [] Neurologic: Alert and oriented X 3, normal motor function, normal sensory function, no focal deficits noted. [] Psychologic: Affect normal, judgement normal, mood normal. [] Current Patient Data: Labs: Laboratory Tests Test 07/01/21 20:24 07/01/21 21:30 Urine Collection Type Unknown Urine Color (Auto) Light yellow Urine Turbidity Clear Urine pH (Auto) 5.0 (<5.0-8.0) Urine Specific [place] 1.025 (1.000-1.030) Urine Protein (Auto) Negative mg/dL (Negative) Urine Glucose (Auto)(UA) Negative mg/dL (Negative) Urine Ketones (Auto) 100 mg/dL (Negative) Urine Blood (Auto) Trace (Negative) Urine Nitrite Negative (Negative) Urine Bilirubin (Auto) Negative (Negative) Urine Urobilinogen (Auto) Normal mg/dL (Normal) Urine Leukocyte Esterase (Auto) Negative (Negative) Urine RBC 1-2 /HPF (0-2) Urine WBC 1-4 /HPF (0-4) Urine Squamous Epithelial Cells Few /LPF Urine Amorphous Sediment Present /HPF Urine Bacteria 0 /HPF (0-FEW) Urine Mucus Marked /LPF White Blood Count 7.4 x10^3/uL (4.0-11.0) Red Blood Count 5.35 x10^6/uL (4.30-5.70) Hemoglobin 16.4 g/dL (13.0-17.5) Hematocrit 47.3 % (39.0-53.0) Mean Corpuscular Volume 88 fL (79-100) Mean Corpuscular Hemoglobin 31 pg (25-35) Mean Corpuscular Hemoglobin Concent 35 g/dL (31-37) Red Cell Distribution Width 13.5 % (11.5-14.5) Platelet Count 212 x10^3/uL (140-400) Sodium Level 141 mmol/L (136-145) Potassium Level 4.0 mmol/L (3.5-5.1) Chloride Level 103 mmol/L (98-107) Carbon Dioxide Level 25 mmol/L (21-32) Anion Gap 13 (6-14) Blood Urea Nitrogen 16 mg/dL (8-26) Creatinine 0.8 mg/dL (0.7-1.3) Estimated GFR (Cockcroft-Gault) 98.0 BUN/Creatinine Ratio 20 (6-20) Glucose Level 103 mg/dL (70-99) H Calcium Level 9.4 mg/dL (8.5-10.1) Total Bilirubin 0.5 mg/dL (0.2-1.0) Aspartate Amino Transferase (AST) 27 U/L (15-37) Alanine Aminotransferase (ALT) 40 U/L (16-63) Alkaline Phosphatase 67 U/L (46-116) Total Protein 7.4 g/dL (6.4-8.2) Albumin 4.0 g/dL (3.4-5.0) Albumin/Globulin Ratio 1.2 (1.0-1.7) Lipase 89 U/L (73-393) Laboratory Tests 07/01/21 21:30 Laboratory Tests 07/01/21 21:30 Vital Signs: Vital Signs Date Time Temp Pulse Resp B/P (MAP) Pulse Ox O2 Delivery O2 Flow Rate FiO2 07/01/21 21:29 23 152/99 (116) 94 Room Air 07/01/21 20:20 98.6 103 98.6 EKG: EKG: [] Radiology/Procedures: Radiology/Procedures: [] Course & Med Decision Making: Course & Med Decision Making Pertinent Labs and Imaging studies reviewed. (See chart for details) X-ray shows gaseous distention but no significant constipation or kidney stones. Urinalysis indicates hematuria which likely means that he had a stone that recently passed. Patient is completely pain-free currently. Dragon Disclaimer: Dragon Disclaimer: This electronic medical record was generated, in whole or in part, using a voice recognition dictation system. Departure Departure Impression: Primary Impression: Kidney stone Disposition: HOME / SELF CARE / HOMELESS Condition: GOOD Referrals: AYAN SHELLEY (PCP) Patient Instructions: Kidney Stones NARCISA SILVERMAN MD Jul 01, 2021 23:10
[2021-07-01 23:29] VITALS: BP 132/84
== END 2021-07-02 | disposition home or self-care (01) ==
LOC: ER 19:53
DX: N20.0 Calculus of kidney (principal); E78.00 Pure hypercholesterolemia, unspecified; I25.10 Atherosclerotic heart disease of native coronary artery without angina pectoris; I10 Essential (primary) hypertension; Z95.5 Presence of coronary angioplasty implant and graft
CPT/HCPCS: 36415; 74018; 80053; 81001; 83690; 85027; 99285-25